=== PATIENT | female | born 1970 | race American Indian/Alaskan Native ===

== ENCOUNTER 2016-07-23 02:59 | Emergency (ER) | payer SELFPAY ==
[2016-07-23 03:25] VITALS: BP 171/94
--- NOTE | 2016-07-23 04:43 | Emergency Department Report ---
ED Lower Extremity HPI - General Chief Complaint: Extremity Injury, Lower Stated Complaint: RIGHT ANKLE PAIN Time Seen by Provider: 07/23/16 04:25 Source: patient Mode of arrival: Ambulatory Limitations: No Limitations - History of Present Illness Initial Comments: 46 y/o female presents to ER with complaints of right ankle pain. She twisted her right ankle at home few hours ago, since complaint of swelling and pain to her right ankle. Complaint: ankle injury (right) -: Gradual, hour(s) (few) Injury: Ankle: Right Type of Injury: inversion Place: home Severity: moderate Severity scale (0 -10): 2 Improves With: nothing Worsens With: movement Context: fall Associated Symptoms: swelling Treatments Prior to Arrival: cold therapy - Related Data Previous Rx's Medication Instructions Recorded Last Taken Type Acetaminophen/Codeine [Tylenol #3] 1 tab PO Q6H PRN #12 tab 07/23/16 Unknown Rx Diclofenac Sodium 75 mg PO BID #20 tablet. 07/23/16 Unknown Rx Allergies Allergy/AdvReac Type Severity Reaction Status Date / Time acetaminophen [From Percocet] Allergy Rash Verified 07/23/16 03:25 cefoxitin sodium Allergy Rash Verified 07/23/16 03:25 [From Mefoxin] oxycodone HCl [From Percocet] Allergy Rash Verified 07/23/16 03:25 ED Review of Systems ROS: Stated complaint: RIGHT ANKLE PAIN Other details as noted in HPI Comment: All other systems reviewed and negative Constitutional: denies: chills, fever Eyes: denies: eye pain, eye discharge, vision change ENT: denies: ear pain, throat pain Respiratory: denies: cough, shortness of breath, wheezing Cardiovascular: denies: chest pain, palpitations Endocrine: no symptoms reported Gastrointestinal: denies: abdominal pain, nausea, diarrhea Genitourinary: denies: urgency, dysuria, discharge Musculoskeletal: joint swelling, other (right ankle). denies: back pain, arthralgia Skin: denies: rash, lesions Neurological: denies: headache, weakness, paresthesias Psychiatric: denies: anxiety, depression Hematological/Lymphatic: denies: easy bleeding, easy bruising ED Past Medical Hx - Past Medical History Previous Medical History?: No - Surgical History Past Surgical History?: Yes Additional Surgical History: hysterectomy 2014, GB 2004/2005? - Social History Smoking Status: Current Every Day Smoker - Medications Home Medications: Home Medications Medication Instructions Recorded Confirmed Last Taken Type Acetaminophen/Codeine [Tylenol #3] 1 tab PO Q6H PRN #12 tab 07/23/16 Unknown Rx Diclofenac Sodium 75 mg PO BID #20 tablet. 07/23/16 Unknown Rx ED Physical Exam - General Limitations: No Limitations General appearance: alert, in no apparent distress - Head Head exam: Present: atraumatic, normocephalic - Eye Eye exam: Present: normal appearance - ENT ENT exam: Present: mucous membranes moist - Neck Neck exam: Present: normal inspection - Respiratory Respiratory exam: Present: normal lung sounds bilaterally. Absent: respiratory distress - Cardiovascular Cardiovascular Exam: Present: regular rate, normal rhythm. Absent: systolic murmur, diastolic murmur, rubs, gallop - GI/Abdominal GI/Abdominal exam: Present: soft, normal bowel sounds - Extremities Exam Extremities exam: Present: normal inspection - Expanded Lower Extremity Exam Right Hip exam: Present: normal inspection, full ROM Upper Leg exam: Present: normal inspection, full ROM Knee exam: Present: normal inspection, full ROM Lower Leg exam: Present: normal inspection, full ROM Ankle exam: Present: normal inspection, tenderness, swelling (medial and lateral right ankle) Foot/Toe exam: Present: normal inspection, full ROM Neuro vascular tendon exam: Present: no vascular compromise - Back Exam Back exam: Present: normal inspection - Neurological Exam Neurological exam: Present: alert, oriented X3 - Psychiatric Psychiatric exam: Present: normal affect, normal mood - Skin Skin exam: Present: warm, dry, intact, normal color. Absent: rash ED Course Vital Signs 07/23/16 03:08 Temperature 99.2 F Pulse Rate 87 Respiratory 18 Rate Blood Pressure 171/94 O2 Sat by Pulse 100 Oximetry - Orthopedic Splinting/Casting Injury #1 Side: right Lower Extremity Injury Location: ankle Lower Extremity Immobilizer: AirCast Other Orthopedic Equipment: crutches ED Lower Extremity MDM - Radiology Data Radiology results: report reviewed, image reviewed (no acute fracture) Critical care attestation.: If time is entered above; I have spent that time in minutes in the direct care of this critically ill patient, excluding procedure time. ED Disposition Clinical Impression: Moderate right ankle sprain Qualifiers: Encounter type: initial encounter Qualified Code(s): S93.401A - Sprain of unspecified ligament of right ankle, initial encounter Disposition: DISCHARGED TO HOME OR SELFCARE Is pt being admited?: No Does the pt Need Aspirin: No Condition: Good Instructions: Ankle Sprain (ED), Ankle Stirrup Splint (ED) Prescriptions: Acetaminophen/Codeine [Tylenol #3] 1 tab PO Q6H PRN #12 tab PRN Reason: Pain Diclofenac Sodium 75 mg PO BID #20 tablet.dr Referrals: SUSAN MCKEON MD [Staff Physician] - 3-5 Days Forms: Work/School Release Form(ED)
[2016-07-23] MEDS ORDERED: TORADOL IM ONE (06:00)
[2016-07-23] MEDS ORDERED: TYLENOL #3 PO ONE (06:02)
--- NOTE | 2016-07-23 08:05 | XRay Report ---
RIGHT ANKLE RADIOGRAPHS INDICATION: Pain and swelling. COMPARISON: None similar at this institution. FINDINGS: AP, lateral and oblique right ankle radiographs demonstrate intact mortise, malleoli and talar dome contour. Normal soft tissues. CONCLUSION: No acute radiographic abnormality. Thank you for the opportunity to participate in this patient's care.
== END 2016-07-23 06:23 | disposition home or self-care (01) ==
LOC: ED 02:59
DX: S93.401A Sprain of unspecified ligament of right ankle, initial encounter (principal); F17.200 Nicotine dependence, unspecified, uncomplicated; Z90.710 Acquired absence of both cervix and uterus; Z88.8 Allergy status to other drugs, medicaments and biological substances; X58.XXXA Exposure to other specified factors, initial encounter; Y93.89 Activity, other specified; Y99.8 Other external cause status; Y92.098 Other place in other non-institutional residence as the place of occurrence of the external cause
CPT/HCPCS: 29515; 73610; 96372; 99284; J1885

== ENCOUNTER 2017-01-11 18:41 | Emergency (ER) | payer OTHER ==
[2017-01-11] MEDS ORDERED: CATAPRES PO ONE (19:16)
[2017-01-11] MEDS ORDERED: CATAPRES ONE (19:21)
[2017-01-11 19:32] LABS: Basophils % (Auto) 0.9 % (0.0-1.8); Eosinophils % (Auto) 2.2 % (0.0-4.3); Hematocrit 39.4 % (30.3-42.9); Hemoglobin 12.8 gm/dl (10.1-14.3); Mean Corpuscular HGB Conc 32 % (30-34); Mean Corpuscular Hemoglobin 29 pg (28-32); Mean Corpuscular Volume 91 fl (79-97); Platelet Count 267 K/mm3 (140-440); Red Blood Count 4.35 M/mm3 (3.65-5.03); Red Cell Distribution Width 13.4 % (13.2-15.2); White Blood Count 6.9 K/mm3 (4.5-11.0)
[2017-01-11 19:53] LABS: Anion Gap 19 mmol/L; Blood Urea Nitrogen 11 mg/dL (7-17); Carbon Dioxide 23 mmol/L (22-30); Chloride 100.4 mmol/L (98-107); Glucose 95 mg/dL (65-100); Potassium 4.4 mmol/L (3.6-5.0); Sodium 138 mmol/L (137-145)
[2017-01-11 20:25] LABS: Bilirubin,Urine NEG (Negative); Blood,Urine MOD (Negative); Ketones,Urine NEG (Negative); Leukocyte Esterase,Urine NEG (Negative); Mucus,Urine FEW /HPF; Nitrite,Urine NEG (Negative); Protein,Urine <15 mg/dL mg/dL (Negative); Urobilinogen,Urine < 2.0 mg/dL (<2.0)
[2017-01-11] MEDS ORDERED: TORADOL IM ONE (22:04)
[2017-01-11] MEDS ORDERED: ZOFRAN IM ONE (22:04)
[2017-01-11] MEDS ORDERED: SUBLIMAZE IM ONE (22:04)
--- NOTE | 2017-01-11 22:24 | Emergency Department Report ---
HPI - General Chief Complaint: Neck Pain/Injury Time Seen by Provider: 01/11/17 21:53 - HPI HPI: Room 2 The patient is a 46-year-old female presenting with a chief complaint of right shoulder/neck pain. The patient states since yesterday morning after waking she 's had pain in the right trapezius/neck region. Patient denies any preceding trauma or heavy lifting. Patient denies any history of fever. Patient denies chest pain shortness of breath nausea or vomiting. Patient denies previous episodes of same. The patient states she took a shower and it did help the pain however today the pain increased. The patient states she is tried icy hot and BC powder but it did not help. The patient currently gives her pain a score of 8/10 Location: [see above] Duration: 2 days Quality: Soreness Severity:8/10 Modifying factors: Movement increases pain Context: [see above] Mode of transportation: [not driving] ED Past Medical Hx - Past Medical History Previous Medical History?: Yes Additional medical history: hypothyroidism - Surgical History Past Surgical History?: Yes Hx Cholecystectomy: Yes Additional Surgical History: hysterectomy 2014 - Social History Smoking Status: Current Every Day Smoker (1/2 pack per day) Substance Use Type: None (denies illicit drug use), Alcohol (occasional) - Medications Home Medications: Home Medications Medication Instructions Recorded Confirmed Last Taken Type Acetaminophen/Codeine [Tylenol #3] 1 tab PO Q6H PRN #12 tab 07/23/16 Unknown Rx Diclofenac Sodium 75 mg PO BID #20 tablet. 07/23/16 Unknown Rx Cyclobenzaprine [Flexeril] 10 mg PO TID PRN #20 tablet 01/11/17 Unknown Rx HYDROcodone/APAP 5-325 [[place] 1 - 2 each PO Q6HR PRN #14 tablet 01/11/17 Unknown Rx 5/325] Ibuprofen [Motrin 800 MG tab] 800 mg PO Q8HR PRN #20 tablet 01/11/17 Unknown Rx Levothyroxine [Synthroid] 125 mcg PO QAM #60 tablet 01/11/17 Unknown Rx ED Review of Systems ROS: Stated complaint: RT SIDE PAIN Other details as noted in HPI Comment: All other systems reviewed and negative Constitutional: denies: chills, fever Eyes: denies: eye pain, eye discharge, vision change ENT: denies: ear pain, throat pain Respiratory: denies: cough, shortness of breath, wheezing Cardiovascular: denies: chest pain, palpitations Endocrine: no symptoms reported Gastrointestinal: denies: abdominal pain, nausea, diarrhea Genitourinary: denies: urgency, dysuria, discharge Musculoskeletal: myalgia Skin: denies: rash, lesions Neurological: denies: headache, weakness, paresthesias Psychiatric: denies: anxiety, depression Hematological/Lymphatic: denies: easy bleeding, easy bruising Physical Exam - Physical Exam Vital Signs: Vital Signs 01/11/17 01/11/17 19:01 19:20 Temperature 98.4 F Pulse Rate 89 89 Respiratory 18 Rate Blood Pressure 185/114 185/114 O2 Sat by Pulse 100 Oximetry Physical Exam: GENERAL: The patient is well-developed well-nourished female sitting in chair not appearing to be in acute distress. [] HEENT: Normocephalic. Atraumatic. Extraocular motions are intact. Patient has moist mucous membranes. NECK: Supple. No axial tenderness to palpation CHEST/LUNGS: Clear to auscultation. There is no respiratory distress noted. HEART/CARDIOVASCULAR: Regular. There is no tachycardia. There is no gallop rub or murmur. ABDOMEN: There is no abdominal distention. SKIN: There is no rash. There is no edema. There is no diaphoresis. NEURO: The patient is awake, alert, and oriented. The patient is cooperative. The patient has no focal neurologic deficits. The patient has normal speech and gait. MUSCULOSKELETAL: There is no tenderness or deformity. There is reproduction of the pain on the patient's right arm is resistant while pushing anteriorly. There is reproduction of the pain when the patient touches her back with her right thumb going over her right shoulder. There is no evidence of acute injury. ED Course Vital Signs 01/11/17 01/11/17 19:01 19:20 Temperature 98.4 F Pulse Rate 89 89 Respiratory 18 Rate Blood Pressure 185/114 185/114 O2 Sat by Pulse 100 Oximetry ED Medical Decision Making - Lab Data Result diagrams: 01/11/17 19:20 01/11/17 19:20 Laboratory Tests 01/11/17 01/11/17 01/11/17 19:18 19:20 19:20 WBC 6.9 RBC 4.35 Hgb 12.8 Hct 39.4 MCV 91 MCH 29 MCHC 32 RDW 13.4 Plt Count 267 Lymph % (Auto) 38.9 H Todd % (Auto) 8.6 H Eos % (Auto) 2.2 Baso % (Auto) 0.9 Lymph # 2.7 Todd # 0.6 Eos # 0.1 Baso # 0.1 Seg Neutrophils % 49.4 Seg Neutrophils # 3.4 Sodium 138 Potassium 4.4 Chloride 100.4 Carbon Dioxide 23 Anion Gap 19 BUN 11 Creatinine 1.0 Estimated GFR > 60 BUN/Creatinine Ratio 11.00 Glucose 95 Calcium 9.0 TSH Free T4 Thyroxine (T4) Urine Color Yellow Urine Turbidity Clear Urine pH 6.0 Ur Specific [place] 1.017 Urine Protein <15 mg/dl Urine Glucose (UA) Neg Urine Ketones Neg Urine Blood Mod Urine Nitrite Neg Urine Bilirubin Neg Urine Urobilinogen < 2.0 Ur Leukocyte Esterase Neg Urine WBC (Auto) 1.0 Urine RBC (Auto) 9.0 U Epithel Cells (Auto) 3.0 Urine Mucus Few 01/11/17 01/11/17 19:20 19:20 WBC RBC Hgb Hct MCV MCH MCHC RDW Plt Count Lymph % (Auto) Todd % (Auto) Eos % (Auto) Baso % (Auto) Lymph # Todd # Eos # Baso # Seg Neutrophils % Seg Neutrophils # Sodium Potassium Chloride Carbon Dioxide Anion Gap BUN Creatinine Estimated GFR BUN/Creatinine Ratio Glucose Calcium TSH 10.330 H 10.350 H Free T4 0.62 L Thyroxine (T4) 4.3 Urine Color Urine Turbidity Urine pH Ur Specific [place] Urine Protein Urine Glucose (UA) Urine Ketones Urine Blood Urine Nitrite Urine Bilirubin Urine Urobilinogen Ur Leukocyte Esterase Urine WBC (Auto) Urine RBC (Auto) U Epithel Cells (Auto) Urine Mucus - Differential Diagnosis rotator cuff injury, bursitis, muscle spasm Critical care attestation.: If time is entered above; I have spent that time in minutes in the direct care of this critically ill patient, excluding procedure time. ED Disposition Clinical Impression: Rotator cuff injury, Right shoulder pain, Hypothyroidism Disposition: TO HOME OR SELFCARE Is pt being admited?: No Does the pt Need Aspirin: No Condition: Stable Instructions: Rotator Cuff Injury (ED), Hypothyroidism (ED) Additional Instructions: Return to the emergency department immediately should you develop worsening symptoms, fever, inability to tolerate food or liquid or any other concerns. Prescriptions: Cyclobenzaprine [Flexeril] 10 mg PO TID PRN #20 tablet PRN Reason: Muscle Spasm HYDROcodone/APAP 5-325 [[place] 5/325] 1 - 2 each PO Q6HR PRN #14 tablet PRN Reason: Pain Ibuprofen [Motrin 800 MG tab] 800 mg PO Q8HR PRN #20 tablet PRN Reason: Pain Levothyroxine [Synthroid] 125 mcg PO QAM #60 tablet Referrals: [facility] [Outside] - 3-5 Days SALVADOR HERNANDEZ MD [Staff Physician] - 3-5 Days (Dr. Hernandez is an orthopedic surgeon. Please follow up with him for further evaluation) Time of Disposition: 23:47
[2017-01-12 00:30] VITALS: BP 148/91
== END 2017-01-12 00:36 | disposition home or self-care (01) ==
LOC: ED 18:41
DX: S49.91XA Unspecified injury of right shoulder and upper arm, initial encounter (principal); F17.200 Nicotine dependence, unspecified, uncomplicated; E03.9 Hypothyroidism, unspecified; X50.0XXA Overexertion from strenuous movement or load, initial encounter; Y93.9 Activity, unspecified; Y92.9 Unspecified place or not applicable; Y99.9 Unspecified external cause status
CPT/HCPCS: 36415; 80048; 81001; 84436; 84439; 84443; 84481; 85025; 96372; 99283; J1885; J2405; J3010

== ENCOUNTER 2017-04-25 16:13 | Emergency (ER) | payer MEDICAID, OTHER ==
[2017-04-25 18:33] LABS: Bacteria,Urine 1+ /HPF (Negative); Bilirubin,Urine NEG (Negative); Blood,Urine MOD (Negative); Ketones,Urine NEG (Negative); Leukocyte Esterase,Urine NEG (Negative); Mucus,Urine FEW /HPF; Nitrite,Urine NEG (Negative); Protein,Urine <15 mg/dL mg/dL (Negative); Urobilinogen,Urine < 2.0 mg/dL (<2.0)
[2017-04-25 21:45] VITALS: BP 169/85
--- NOTE | 2017-04-25 22:23 | XRay Report ---
FINAL REPORT PROCEDURE: XR CHEST ROUTINE 2V TECHNIQUE: PA and lateral chest radiographs were obtained. CPT 12076 HISTORY: cough COMPARISON: No prior studies are available for comparison. FINDINGS: Heart: Normal. Mediastinum/Vessels: Normal. Lungs/Pleural space: Lungs are clear and expanded. There are no infiltrates, effusions or pneumothoraces.. Bony thorax: No acute osseous abnormality. Other: IMPRESSION: Normal examination.
--- NOTE | 2017-04-25 22:40 | Emergency Department Report ---
- General Chief Complaint: Upper Respiratory Infection Stated Complaint: NOSE/EAR FEEL CLOGGED Time Seen by Provider: 04/25/17 21:25 Source: patient Mode of arrival: Ambulatory Limitations: No Limitations - History of Present Illness Initial Comments: This is a 47-year-old female nontoxic, well nourished in appearance, no acute signs of distress presents to the ED with c/o of nasal congestion, rhinorrhea, productive cough 1 week. Patient stated daughter has similar symptoms. Patient denies any hemoptysis, fever, chills, headache, nausea, vomiting, stiff neck, chest pain or shortness of breath. Patient denies admission travels, long car rides or recent hospital stays. Denies any past medical history besides hypothyroidism. Allergies to Percocet and Mefoxin. Patient also states she needs a refill for levothyroxine 125mcg. MD Complaint: fever, cough, rhinorrhea, nasal congestion -: Gradual, week(s) (1) Severity: mild Consistency: constant Improves With: nothing Worsens With: nothing Associated Symptoms: rhinorrhea, nasal congestion, cough. denies: fever, chills , myalgias, diaphoresis, headache, sore throat, stiff neck, chest pain, shortness of breath, abdominal pain, nausea, vomiting, diarrhea, dysuria, rash, confusion, right sweats, weight loss, epistaxis, hoarseness, ear pain Treatments Prior to Arrival: none - Related Data Previous Rx's Medication Instructions Recorded Last Taken Type Acetaminophen/Codeine [Tylenol #3] 1 tab PO Q6H PRN #12 tab 07/23/16 Unknown Rx Diclofenac Sodium 75 mg PO BID #20 tablet. 07/23/16 Unknown Rx Cyclobenzaprine [Flexeril] 10 mg PO TID PRN #20 tablet 01/11/17 Unknown Rx HYDROcodone/APAP 5-325 [[place] 1 - 2 each PO Q6HR PRN #14 tablet 01/11/17 Unknown Rx 5/325] Ibuprofen [Motrin 800 MG tab] 800 mg PO Q8HR PRN #20 tablet 01/11/17 Unknown Rx Levothyroxine [Synthroid] 125 mcg PO QAM #60 tablet 01/11/17 Unknown Rx Azithromycin [Zithromax Z-JAN] 250 mg PO DAILY #6 tablet 04/25/17 Unknown Rx Benzonatate [Tessalon Perle] 100 mg PO Q8H PRN #20 capsule 04/25/17 Unknown Rx Levothyroxine [Synthroid] 125 mcg PO QAM #30 tablet 04/25/17 Unknown Rx Allergies Allergy/AdvReac Type Severity Reaction Status Date / Time cefoxitin sodium Allergy Rash Verified 07/23/16 03:25 [From Mefoxin] oxycodone HCl [From Percocet] Allergy Rash Verified 07/23/16 03:25 ED Review of Systems ROS: Stated complaint: NOSE/EAR FEEL CLOGGED Other details as noted in HPI Constitutional: denies: chills, fever Eyes: denies: eye pain, eye discharge, vision change ENT: denies: ear pain, throat pain Respiratory: cough. denies: shortness of breath, wheezing Cardiovascular: denies: chest pain, palpitations Endocrine: no symptoms reported Gastrointestinal: denies: abdominal pain, nausea, diarrhea Genitourinary: denies: urgency, dysuria, discharge Musculoskeletal: denies: back pain, joint swelling, arthralgia Skin: denies: rash, lesions Neurological: denies: headache, weakness, paresthesias Psychiatric: denies: anxiety, depression Hematological/Lymphatic: denies: easy bleeding, easy bruising ED Past Medical Hx - Past Medical History Previous Medical History?: Yes Additional medical history: hypothyroidism - Surgical History Past Surgical History?: Yes Hx Cholecystectomy: Yes Additional Surgical History: hysterectomy 2014 - Social History Smoking Status: Current Every Day Smoker Substance Use Type: Alcohol - Medications Home Medications: Home Medications Medication Instructions Recorded Confirmed Last Taken Type Acetaminophen/Codeine [Tylenol #3] 1 tab PO Q6H PRN #12 tab 07/23/16 Unknown Rx Diclofenac Sodium 75 mg PO BID #20 tablet. 07/23/16 Unknown Rx Cyclobenzaprine [Flexeril] 10 mg PO TID PRN #20 tablet 01/11/17 Unknown Rx HYDROcodone/APAP 5-325 [[place] 1 - 2 each PO Q6HR PRN #14 tablet 01/11/17 Unknown Rx 5/325] Ibuprofen [Motrin 800 MG tab] 800 mg PO Q8HR PRN #20 tablet 01/11/17 Unknown Rx Levothyroxine [Synthroid] 125 mcg PO QAM #60 tablet 01/11/17 Unknown Rx Azithromycin [Zithromax Z-JAN] 250 mg PO DAILY #6 tablet 04/25/17 Unknown Rx Benzonatate [Tessalon Perle] 100 mg PO Q8H PRN #20 capsule 04/25/17 Unknown Rx Levothyroxine [Synthroid] 125 mcg PO QAM #30 tablet 04/25/17 Unknown Rx ED Physical Exam - General Limitations: No Limitations General appearance: alert, in no apparent distress - Head Head exam: Present: atraumatic, normocephalic - Eye Eye exam: Present: normal appearance, PERRL, EOMI Pupils: Present: normal accommodation - ENT ENT exam: Present: normal exam, normal orophraynx, mucous membranes moist, TM's normal bilaterally, normal external ear exam - Neck Neck exam: Present: normal inspection, full ROM. Absent: tenderness, meningismus, lymphadenopathy, thyromegaly - Respiratory Respiratory exam: Present: normal lung sounds bilaterally. Absent: respiratory distress, wheezes, rales, rhonchi, stridor, chest wall tenderness, accessory muscle use, decreased breath sounds, prolonged expiratory - Cardiovascular Cardiovascular Exam: Present: regular rate, normal rhythm, normal heart sounds. Absent: irregular rhythm, systolic murmur, diastolic murmur, rubs, gallop - GI/Abdominal GI/Abdominal exam: Present: soft, normal bowel sounds. Absent: distended, tenderness, guarding, rebound, rigid, diminished bowel sounds - Rectal Rectal exam: Present: deferred - Extremities Exam Extremities exam: Present: normal inspection, full ROM, normal capillary refill. Absent: tenderness, pedal edema, joint swelling, calf tenderness - Back Exam Back exam: Present: normal inspection, full ROM. Absent: tenderness, CVA tenderness (R), CVA tenderness (L), muscle spasm, paraspinal tenderness, vertebral tenderness, rash noted - Neurological Exam Neurological exam: Present: alert, oriented X3, CN II-XII intact, normal gait, reflexes normal - Psychiatric Psychiatric exam: Present: normal affect, normal mood - Skin Skin exam: Present: warm, dry, intact, normal color. Absent: rash ED Course Vital Signs 04/25/17 04/25/17 16:38 21:44 Temperature 98.7 F 98.2 F Pulse Rate 92 H 88 Respiratory 16 16 Rate Blood Pressure 156/89 Blood Pressure 169/85 [Left] O2 Sat by Pulse 99 99 Oximetry - Reevaluation(s) Reevaluation #1: 04/25/17 22:38 Patient is speaking in full sentences with no signs of distress noted. ED Medical Decision Making - Radiology Data Radiology results: report reviewed interpreted by me: Radiologist Normal exam Critical care attestation.: If time is entered above; I have spent that time in minutes in the direct care of this critically ill patient, excluding procedure time. ED Disposition Clinical Impression: Upper respiratory infection Qualifiers: URI type: unspecified URI Qualified Code(s): J06.9 - Acute upper respiratory infection, unspecified Disposition: DC- TO HOME OR SELFCARE Is pt being admited?: No Does the pt Need Aspirin: No Condition: Stable Instructions: Azithromycin (By mouth), Upper Respiratory Infection (ED), Benzonatate (By mouth) Additional Instructions: Follow-up with a primary care doctor in 3-5 days or if symptoms worsen and continue return to emergency room as soon as possible. Prescriptions: Azithromycin [Zithromax Z-JAN] 250 mg PO DAILY #6 tablet Benzonatate [Tessalon Perle] 100 mg PO Q8H PRN #20 capsule PRN Reason: Cough Levothyroxine [Synthroid] 125 mcg PO QAM #30 tablet Referrals: SARAH BOBBY MD [Primary Care Provider] - 3-5 Days LINAD HUGHES MD [Staff Physician] - 3-5 Days [facility] [Outside] - 3-[address] [facility] [Outside] - 3-5 Days Forms: Work/School Release Form(ED)
== END 2017-04-25 22:53 | disposition home or self-care (01) ==
LOC: ED 16:13
DX: J06.9 Acute upper respiratory infection, unspecified (principal); F17.210 Nicotine dependence, cigarettes, uncomplicated; E03.9 Hypothyroidism, unspecified; Z88.8 Allergy status to other drugs, medicaments and biological substances
CPT/HCPCS: 71020; 81001; 99283

== ENCOUNTER 2017-11-22 11:31 | Emergency (ER) | payer MEDICAID ==
[2017-11-22 12:12] LABS: Bacteria,Urine 1+ /HPF (Negative); Bilirubin,Urine SM (Negative); Blood,Urine MOD (Negative); Color,Urine Amber (Yellow); Mucus,Urine 3+ /HPF
[2017-11-22 12:16] LABS: Ictotest,Urine Negative (Negative)
--- NOTE | 2017-11-22 12:17 | Emergency Department Report ---
Vomiting/Diarrhea - HPI Chief Complaint: Abdominal Pain Stated Complaint: ABD PAIN Time Seen by Provider: 11/22/17 11:52 Duration: 3 Days Severity: mild Nausea/Vomiting Severity: Mild Diarrhea Severity: Moderate Pain Location: Suprapubic Pain Severity: Moderate Symptoms: Yes Watery Diarrhea, Yes Able to Tolerate Fluids, No Bloody diarrhea, No Fever, No Recent Unusual Foods, No Recent Untreated Water, No Recent use of Antibiotics, No Family w/ Similar Symptoms, No Contacts w/ Similar Symptoms, No Rash, No Hematuria, No Recent URI Symptoms Other History: This is a 47-year-old -[place] female who presents with suprapubic and left flank pain for 3 days. Patient reports having symptoms 1 week ago but symptoms increase shortly after her grandmother passed 3 days ago. Patient reports pain to left flank and has sharp pains that are intermittent. She have urgency without dysuria and frequency. Patient reports like something is pulling and stomach. He admits to nausea vomiting and diarrhea for the past 2 days. She is drinking Gatorade in increased amounts of water with no improvement of symptoms. Denies recent travel, fever, chest pain, shortness of breath, or other contacts sent home with similar symptoms. ED Review of Systems ROS: Stated complaint: ABD PAIN Other details as noted in HPI Constitutional: denies: chills, fever Respiratory: denies: cough, shortness of breath, wheezing Cardiovascular: denies: chest pain, palpitations Gastrointestinal: abdominal pain (suprapubic abdominal pain), nausea, vomiting. denies: diarrhea, constipation, hematemesis, melena, hematochezia Genitourinary: urgency. denies: dysuria, frequency, hematuria, discharge, abnormal menses, dyspareunia Musculoskeletal: back pain (left flank pain). denies: joint swelling, arthralgia Skin: denies: rash, lesions Neurological: denies: headache, weakness, numbness, paresthesias Psychiatric: denies: anxiety, depression ED Past Medical Hx - Past Medical History Previous Medical History?: Yes Additional medical history: hypothyroidism, Anemia - Surgical History Past Surgical History?: Yes Hx Cholecystectomy: Yes Additional Surgical History: hysterectomy 2014 - Social History Smoking Status: Current Every Day Smoker Substance Use Type: Alcohol - Medications Home Medications: Home Medications Medication Instructions Recorded Confirmed Last Taken Type Acetaminophen/Codeine [Tylenol #3] 1 tab PO Q6H PRN #12 tab 07/23/16 Unknown Rx Diclofenac Sodium 75 mg PO BID #20 tablet. 07/23/16 Unknown Rx Cyclobenzaprine [Flexeril] 10 mg PO TID PRN #20 tablet 01/11/17 Unknown Rx HYDROcodone/APAP 5-325 [Peoa 1 - 2 each PO Q6HR PRN #14 tablet 01/11/17 Unknown Rx 5/325] Ibuprofen [Motrin 800 MG tab] 800 mg PO Q8HR PRN #20 tablet 01/11/17 Unknown Rx Levothyroxine [Synthroid] 125 mcg PO QAM #60 tablet 01/11/17 Unknown Rx Azithromycin [Zithromax Z-JAN] 250 mg PO DAILY #6 tablet 04/25/17 Unknown Rx Benzonatate [Tessalon Perle] 100 mg PO Q8H PRN #20 capsule 04/25/17 Unknown Rx Levothyroxine [Synthroid] 125 mcg PO QAM #30 tablet 04/25/17 Unknown Rx Ondansetron [Zofran Odt] 4 mg PO TID PRN #12 tab.rapdis 11/22/17 Unknown Rx Sulfamethoxazole/Trimethoprim 1 each PO BID 3 Days #6 tablet 11/22/17 Unknown Rx [Bactrim DS TAB] Vomiting Diarrhea Exam - Exam General: Vital signs noted. No distress. Alert and acting appropriately. HEENT: Yes Moist Mucous Membranes, No Pharyngeal Erythema, No Pharyngeal Exudates, No Rhinorrhea, No Conjuctival Injection, No Frontal Tenderness, No Maxillary Tenderness Neck: No Adenopathy, No Rigidity Lungs: Yes Clear Lung Sounds, Yes Good Air Exchange, No Wheezes, No Stridor, No Cough, No Nasal Flaring, No Retractions, No Use of Accessory Muscles Heart exam: Regular: Yes, Murmur: No, Tachycardia: No Abdomen: Tenderness: Yes (left upper quadrant tenderness), Peritoneal Signs: No , Distention: No, Hyperactive Bowel sounds: No Skin exam: Rash: No, Edema: No, Normal turgor: Yes Neurologic: Alert and oriented, no deficits. Musculoskeletal: CVA tenderness on left ED Course Vital Signs 11/22/17 11:38 Temperature 98.2 F Pulse Rate 104 H Respiratory 18 Rate Blood Pressure 171/80 O2 Sat by Pulse 99 Oximetry ED Medical Decision Making - Lab Data Result diagrams: 11/22/17 12:30 11/22/17 12:33 - Radiology Data Radiology results: report reviewed, image reviewed CT abdomen and pelvis without contrast: Left upper quadrant tenderness. Transverse images are obtained from lower chest to the ischium with coronal and sagittal 2-D reformatted images. Imaging of the lung bases is unremarkable. There appears to be a small hiatus hernia. The gallbladder has been removed. The abdominal and retroperitoneal organs are unremarkable. The abdominal aorta is normal in size and contour. The unopacified bowel and mesentery appear normal. No evidence of diverticulosis or inflammatory changes are identified. The appendix is present is not identified. Sections of the pelvis show no evidence of free fluid or mass. The bony structures appear normal. Impressions: No pathology identified. - Medical Decision Making This is a 37y.o. female that presents with nausea/vomiting and diarrhea for 2 days. Patient is stable and was examined by me. Vitals normal. Obtained CMP, CBC , UA, urine hCG, lipase, and CT of the abdomen. CT dictated by the radiologist and no acute findings. Potassium low, patient given Klor-Con 40 mEq by mouth 1. Start Bactrim DS one tab by mouth twice a day 3 days for acute cystitis. All of the labs are unremarkable. Discussed plan with patient and agreed to plan. No further questions noted by the patient. Discharged home in stable condition. Follow up with PCP in 2-3 days. Critical care attestation.: If time is entered above; I have spent that time in minutes in the direct care of this critically ill patient, excluding procedure time. ED Disposition Clinical Impression: Gastroenteritis, Hypokalemia, Nausea and vomiting in adult Acute cystitis Qualifiers: Hematuria presence: with hematuria Qualified Code(s): N30.01 - Acute cystitis with hematuria Disposition: DC-01 TO HOME OR SELFCARE Is pt being admited?: No Does the pt Need Aspirin: No Condition: Stable Instructions: Urinary Tract Infection in Women (ED), Gastroenteritis (ED), Acute Nausea and Vomiting (ED), Abdominal Pain (ED) Additional Instructions: Frequent hand washing is important to reduce spread. Prompt disinfection of contaminated surfaces with household chlorine bleach- based freight hustler and washing of soiled clothing and bedding should be advised. If food or water is thought to be contaminated, it should be avoided. Increase fluid intake. Drinks high in sugars such as carbonated soft drinks, fruit juice, and highly sugared liquids should be avoided. Follow-up with primary care provider in 2-3 days. Prescriptions: Ondansetron [Zofran Odt] 4 mg PO TID PRN #12 tab.rapdis PRN Reason: Nausea And Vomiting Sulfamethoxazole/Trimethoprim [Bactrim DS TAB] 1 each PO BID 3 Days #6 tablet Referrals: [facility] [Outside] - 3-5 Days [facility] [Outside] - 3-5 Days [facility] [Provider Group] - 3-5 Days [facility] [Provider Group] - 3-5 Days Forms: Work/School Release Form(ED) Time of Disposition: 13:57 Print Language: BURKINAN
[2017-11-22 12:23] LABS: HCG Qualitative,Urine Negative (Negative)
[2017-11-22 12:53] LABS: Basophils % (Auto) 0.4 % (0.0-1.8); Eosinophils % (Auto) 0.4 % (0.0-4.3); Hematocrit 40.3 % (30.3-42.9); Hemoglobin 13.4 gm/dl (10.1-14.3); Lymphocytes # (Auto) 0.8 K/mm3 (1.2-5.4); Lymphocytes % (Auto) 18.9 % (13.4-35.0); Mean Corpuscular HGB Conc 33 % (30-34); Mean Corpuscular Hemoglobin 30 pg (28-32); Mean Corpuscular Volume 91 fl (79-97); Monocytes # (Auto) 0.5 K/mm3 (0.0-0.8); Platelet Count 218 K/mm3 (140-440); Red Blood Count 4.45 M/mm3 (3.65-5.03); Red Cell Distribution Width 13.6 % (13.2-15.2)
[2017-11-22 13:07] LABS: Alanine Aminotransferase 13 units/L (7-56); Albumin 4.2 g/dL (3.9-5); BUN/Creatinine Ratio 6; Blood Urea Nitrogen 6 mg/dL (7-17); Hemolysis Index 5
--- NOTE | 2017-11-22 13:47 | Cat Scan Report ---
CT abdomen and pelvis without contrast: Left upper quadrant tenderness. Transverse images are obtained from lower chest to the ischium with coronal and sagittal 2-D reformatted images. Imaging of the lung bases is unremarkable. There appears to be a small hiatus hernia. The gallbladder has been removed. The abdominal and retroperitoneal organs are unremarkable. The abdominal aorta is normal in size and contour. The unopacified bowel and mesentery appear normal. No evidence of diverticulosis or inflammatory changes are identified. The appendix is present is not identified. Sections of the pelvis show no evidence of free fluid or mass. The bony structures appear normal. Impressions: No pathology identified.
[2017-11-22] MEDS ORDERED: K-DUR PO ONE (13:58)
[2017-11-22 14:11] VITALS: BP 171/106
== END 2017-11-22 14:22 | disposition home or self-care (01) ==
LOC: ED 11:31
DX: K52.9 Noninfective gastroenteritis and colitis, unspecified (principal); E87.6 Hypokalemia; R11.2 Nausea with vomiting, unspecified; N30.01 Acute cystitis with hematuria; D64.9 Anemia, unspecified; E03.9 Hypothyroidism, unspecified; F17.200 Nicotine dependence, unspecified, uncomplicated; Z90.49 Acquired absence of other specified parts of digestive tract; Z90.710 Acquired absence of both cervix and uterus
CPT/HCPCS: 36415; 74176; 80053; 81001; 81025; 83690; 85025

== ENCOUNTER 2018-06-16 20:48 | Emergency (ER) | payer MEDICAID, OTHER ==
[2018-06-16] MEDS ORDERED: NACL 0.9% 1000 ML 1,000 ML IV ONE ×2 (21:03→21:58)
[2018-06-16 21:30] LABS: Bacteria,Urine 1+ /HPF (Negative); Bilirubin,Urine NEG (Negative); Blood,Urine MOD (Negative); Color,Urine Yellow (Yellow); Mucus,Urine 2+ /HPF; Protein,Urine <15 mg/dL mg/dL (Negative)
[2018-06-16 21:46] LABS: Hematocrit 35.3 % (30.3-42.9); Hemoglobin 11.6 gm/dl (10.1-14.3); Mean Corpuscular HGB Conc 33 % (30-34); Mean Corpuscular Volume 91 fl (79-97); Platelet Count 210 K/mm3 (140-440); Red Cell Distribution Width 13.1 % (13.2-15.2)
[2018-06-16] MEDS ORDERED: TORADOL IV ONE (21:58)
[2018-06-16] MEDS ORDERED: ZOFRAN IV ONE (21:58)
[2018-06-16 22:06] LABS: Alanine Aminotransferase 7 units/L (7-56); Albumin 4.3 g/dL (3.9-5); BUN/Creatinine Ratio 7; Blood Urea Nitrogen 8 mg/dL (7-17); Calcium 9.2 mg/dL (8.4-10.2); Hemolysis Index 10
--- NOTE | 2018-06-16 22:22 | Emergency Department Report ---
ED Abdominal Pain HPI - General Chief Complaint: Abdominal Pain Stated Complaint: LEFT SIDE ABDOMINAL PAIN Time Seen by Provider: 06/16/18 21:57 Source: patient Mode of arrival: Ambulatory Limitations: No Limitations - History of Present Illness Initial Comments: 48-year-old emergency female history total abdominal hysterectomy and renal stones presents for left lower quadrant abdominal pain radiating the suprapubic and left flank 6/10 aching sharp noticed strong urine and dysuria and some frequency there is no vaginal discharge no pelvic pain patient is for std there's nausea no vomiting no fever chills has not noticed hematuria MD Complaint: abdominal pain Onset/Timin -: days(s) Location: LLQ Radiation: suprapubic, L flank Migration to: LLQ Severity: moderate Severity scale (0 -10): 8 Quality: aching, sharp Consistency: intermittent Improves With: nothing Worsens With: movement Associated Symptoms: nausea. denies: vomiting, diarrhea, fever, chills, constipation, dysuria, hematemesis, hematochezia, melena, hematuria, anorexia - Related Data LMP (females 10-50): other (s/p hysterecotmy) Previous Rx's Medication Instructions Recorded Last Taken Type Acetaminophen/Codeine [Tylenol #3] 1 tab PO Q6H PRN #12 tab 07/23/16 Unknown Rx Diclofenac Sodium 75 mg PO BID #20 tablet. 07/23/16 Unknown Rx Cyclobenzaprine [Flexeril] 10 mg PO TID PRN #20 tablet 01/11/17 Unknown Rx HYDROcodone/APAP 5-325 [Carnation 1 - 2 each PO Q6HR PRN #14 tablet 01/11/17 Unknown Rx 5/325] Ibuprofen [Motrin 800 MG tab] 800 mg PO Q8HR PRN #20 tablet 01/11/17 Unknown Rx Levothyroxine [Synthroid] 125 mcg PO QAM #60 tablet 01/11/17 Unknown Rx Azithromycin [Zithromax Z-JAN] 250 mg PO DAILY #6 tablet 04/25/17 Unknown Rx Benzonatate [Tessalon Perle] 100 mg PO Q8H PRN #20 capsule 04/25/17 Unknown Rx Levothyroxine [Synthroid] 125 mcg PO QAM #30 tablet 04/25/17 Unknown Rx Ondansetron [Zofran Odt] 4 mg PO TID PRN #12 tab.rapdis 11/22/17 Unknown Rx Sulfamethoxazole/Trimethoprim 1 each PO BID 3 Days #6 tablet 11/22/17 Unknown Rx [Bactrim DS TAB] ALBUTEROL Inhaler(NF) [VENTOLIN 1 puff IH Q4-6H PRN #1 inha 03/29/18 Unknown Rx Inhaler(NF)] Azithromycin [Zithromax Z-JAN] 250 mg PO DAILY #6 tablet 03/29/18 Unknown Rx Benzonatate [Tessalon Perle] 100 mg PO Q8H PRN #20 capsule 03/29/18 Unknown Rx Ibuprofen [Motrin] 600 mg PO Q8H PRN #20 tablet 03/29/18 Unknown Rx Nitrofurantoin Rowan/M-Cryst 100 mg PO Q12HR #14 capsule 03/29/18 Unknown Rx [Macrobid CAP] Prednisone [predniSONE 10 mg 10 mg PO .TAPER #1 tab.ds.pk 03/29/18 Unknown Rx (6-Day Pack, 21 Tabs)] Famotidine [Pepcid] 20 mg PO BID #60 tablet 06/16/18 Unknown Rx Nitrofurantoin Monohyd/M-Cryst 100 mg PO BID #14 capsule 06/16/18 Unknown Rx [Macrobid 100 mg Capsule] traMADol [Ultram] 50 mg PO Q6HR PRN #12 tablet 06/16/18 Unknown Rx Allergies Allergy/AdvReac Type Severity Reaction Status Date / Time cefoxitin sodium Allergy Rash Verified 03/29/18 07:55 [From Mefoxin] oxycodone HCl [From Percocet] Allergy Rash Verified 03/29/18 07:55 ED Review of Systems ROS: Stated complaint: LEFT SIDE ABDOMINAL PAIN Other details as noted in HPI Constitutional: denies: chills, fever Eyes: denies: eye pain, eye discharge, vision change ENT: denies: ear pain, throat pain Respiratory: denies: cough, shortness of breath, wheezing Cardiovascular: denies: chest pain, palpitations Endocrine: no symptoms reported Gastrointestinal: abdominal pain, nausea. denies: vomiting, diarrhea, constipation, hematemesis, melena, hematochezia Genitourinary: urgency, dysuria, frequency. denies: hematuria, discharge, abnormal menses, dyspareunia Musculoskeletal: denies: back pain, joint swelling, arthralgia Skin: denies: rash, lesions Neurological: denies: headache, weakness, paresthesias Psychiatric: denies: anxiety, depression Hematological/Lymphatic: denies: easy bleeding, easy bruising ED Past Medical Hx - Past Medical History Previous Medical History?: Yes Hx Hypertension: No Hx CVA: No Hx Heart Attack/AMI: No Hx Congestive Heart Failure: No Hx Diabetes: No Hx Deep Vein Thrombosis: No Hx Pulmonary Embolism: No Hx GERD: No Hx Liver Disease: No Hx Renal Disease: No Hx of Cancer: No Hx Sickle Cell Disease: No Hx Arthritis: No Hx Headaches / Migraines: No Hx Seizures: No Hx Kidney Stones: No Hx Psychiatric Treatment: No Hx Asthma: No Hx COPD: No Hx Tuberculosis: No Hx Dementia: No Hx HIV: No Additional medical history: hypothyroidism, Anemia - Surgical History Past Surgical History?: Yes Hx Cholecystectomy: Yes Additional Surgical History: hysterectomy 2014 - Social History Smoking Status: Current Every Day Smoker Substance Use Type: None - Medications Home Medications: Home Medications Medication Instructions Recorded Confirmed Last Taken Type Acetaminophen/Codeine [Tylenol #3] 1 tab PO Q6H PRN #12 tab 07/23/16 Unknown Rx Diclofenac Sodium 75 mg PO BID #20 tablet. 07/23/16 Unknown Rx Cyclobenzaprine [Flexeril] 10 mg PO TID PRN #20 tablet 01/11/17 Unknown Rx HYDROcodone/APAP 5-325 [Carnation 1 - 2 each PO Q6HR PRN #14 tablet 01/11/17 Unknown Rx 5/325] Ibuprofen [Motrin 800 MG tab] 800 mg PO Q8HR PRN #20 tablet 01/11/17 Unknown Rx Levothyroxine [Synthroid] 125 mcg PO QAM #60 tablet 01/11/17 Unknown Rx Azithromycin [Zithromax Z-JAN] 250 mg PO DAILY #6 tablet 04/25/17 Unknown Rx Benzonatate [Tessalon Perle] 100 mg PO Q8H PRN #20 capsule 04/25/17 Unknown Rx Levothyroxine [Synthroid] 125 mcg PO QAM #30 tablet 04/25/17 Unknown Rx Ondansetron [Zofran Odt] 4 mg PO TID PRN #12 tab.rapdis 11/22/17 Unknown Rx Sulfamethoxazole/Trimethoprim 1 each PO BID 3 Days #6 tablet 11/22/17 Unknown Rx [Bactrim DS TAB] ALBUTEROL Inhaler(NF) [VENTOLIN 1 puff IH Q4-6H PRN #1 inha 03/29/18 Unknown Rx Inhaler(NF)] Azithromycin [Zithromax Z-JAN] 250 mg PO DAILY #6 tablet 03/29/18 Unknown Rx Benzonatate [Tessalon Perle] 100 mg PO Q8H PRN #20 capsule 03/29/18 Unknown Rx Ibuprofen [Motrin] 600 mg PO Q8H PRN #20 tablet 03/29/18 Unknown Rx Nitrofurantoin Rowan/M-Cryst 100 mg PO Q12HR #14 capsule 03/29/18 Unknown Rx [Macrobid CAP] Prednisone [predniSONE 10 mg 10 mg PO .TAPER #1 tab.ds.pk 03/29/18 Unknown Rx (6-Day Pack, 21 Tabs)] Famotidine [Pepcid] 20 mg PO BID #60 tablet 06/16/18 Unknown Rx Nitrofurantoin Monohyd/M-Cryst 100 mg PO BID #14 capsule 06/16/18 Unknown Rx [Macrobid 100 mg Capsule] traMADol [Ultram] 50 mg PO Q6HR PRN #12 tablet 06/16/18 Unknown Rx ED Physical Exam - General Limitations: No Limitations General appearance: alert, in no apparent distress - Head Head exam: Present: atraumatic - Eye Eye exam: Present: normal appearance - ENT ENT exam: Present: mucous membranes moist - Neck Neck exam: Present: normal inspection - Respiratory Respiratory exam: Present: normal lung sounds bilaterally. Absent: respiratory distress, wheezes, stridor, chest wall tenderness - Cardiovascular Cardiovascular Exam: Present: regular rate, normal rhythm, normal heart sounds. Absent: systolic murmur, diastolic murmur, rubs, gallop - GI/Abdominal GI/Abdominal exam: Present: soft, normal bowel sounds - Rectal Rectal exam: Present: deferred - Extremities Exam Extremities exam: Present: normal inspection - Back Exam Back exam: Present: normal inspection, full ROM, CVA tenderness (L). Absent: t enderness, CVA tenderness (R), muscle spasm, paraspinal tenderness, rash noted - Neurological Exam Neurological exam: Present: alert, oriented X3 - Psychiatric Psychiatric exam: Present: normal affect, normal mood - Skin Skin exam: Present: warm, dry, intact, normal color. Absent: rash ED Course Vital Signs 06/16/18 20:54 Temperature 98.7 F Pulse Rate 79 Respiratory 18 Rate Blood Pressure 152/85 Blood Pressure 152/85 [Right] O2 Sat by Pulse 98 Oximetry ED Medical Decision Making - Lab Data Result diagrams: 06/16/18 20:03 06/16/18 20:03 Labs 06/16/18 06/16/18 06/16/18 20:03 20:03 21:11 WBC 3.9 L RBC 3.90 Hgb 11.6 Hct 35.3 MCV 91 MCH 30 MCHC 33 RDW 13.1 L Plt Count 210 Seg Neutrophils % Debt Recovery Officer Sodium 140 Potassium 3.8 Chloride 102.8 Carbon Dioxide 28 Anion Gap 13 BUN 8 Creatinine 1.1 Estimated GFR > 60 BUN/Creatinine Ratio 7 Glucose 92 Calcium 9.2 Total Bilirubin 0.30 AST 14 ALT 7 Alkaline Phosphatase 40 Total Protein 6.8 Albumin 4.3 Albumin/Globulin Ratio 1.7 Urine Color Yellow Urine Turbidity Slightly-cloudy Urine pH 6.0 Ur Specific [place] 1.019 Urine Protein <15 mg/dl Urine Glucose (UA) Neg Urine Ketones Neg Urine Blood Mod Urine Nitrite Neg Urine Bilirubin Neg Urine Urobilinogen 2.0 Ur Leukocyte Esterase Neg Urine WBC (Auto) 1.0 Urine RBC (Auto) 18.0 U Epithel Cells (Auto) 8.0 Urine Bacteria (Auto) 1+ Urine Mucus 2+ - Radiology Data Radiology results: report reviewed, image reviewed FINDINGS: The lung bases are without infiltrate, pneumothorax or pleural fluid collection. The heart appears to be normal size. The liver, spleen, pancreas, kidneys and adrenal glands are unremarkable on this study without contrast. The gallbladder is absent with surgical clips in the gallbladder fossa. The bowel is normal caliber. There is a small hiatal hernia. The appendix is normal caliber. There is a small amount of free fluid in the deep pelvis. The etiology of this finding is unclear. There is no evidence of pneumoperitoneum. The abdominal aorta is normal caliber. There is no definite evidence of pathologic intra-abdominal adenopathy by CT size criteria on this study without contrast. The urinary bladder is mildly distended and unremarkable in appearance. The bony structures are unremarkable. IMPRESSION: 1. Small amount of free fluid in the deep pelvis of unclear etiology. If further imaging is required, CT abdomen and pelvis with GI and IV contrast may be helpful for further evaluation. 2. Status post cholecystectomy. 3. Hiatal hernia. Transcribed By: ED Dictated By: AMBER BELLO MD Electronically Authenticated By: AMBER BELLO MD Signed Date/Time: 06/16/18 2990 - Medical Decision Making CT abdomen and pelvis negative for stone noted small hiatal hernia noted mild bladder distention urine positive for blood bacteria mucous Macrobid by mouth twice a day for 7 days ibuprofen when necessary pain follow-up with PCP and [facility] as scheduled pt verbalized agreement and understanding of discharge plan. pt dc'd to home in stable condition at this time. Critical care attestation.: If time is entered above; I have spent that time in minutes in the direct care of this critically ill patient, excluding procedure time. ED Disposition Clinical Impression: Dysuria, Hiatal hernia Abdominal pain Qualifiers: Abdominal location: left lower quadrant Qualified Code(s): R10.32 - Left lower quadrant pain Disposition: DC-01 TO HOME OR SELFCARE Is pt being admited?: No Does the pt Need Aspirin: No Condition: Stable Instructions: Abdominal Pain (ED), Dysuria (ED), Hiatal Hernia (ED) Prescriptions: Famotidine [Pepcid] 20 mg PO BID #60 tablet Nitrofurantoin Monohyd/M-Cryst [Macrobid 100 mg Capsule] 100 mg PO BID #14 capsule traMADol [Ultram] 50 mg PO Q6HR PRN #12 tablet PRN Reason: Pain Referrals: LINDA WOODRUFF MD [Primary Care Provider] - 3-5 Days Forms: Work/School Release Form(ED) Time of Disposition: 23:46
[2018-06-16 22:33] LABS: Basophils % (Manual) 0 % (0.0-1.8); Total Cells Counted 100
[2018-06-16 22:34] LABS: RBC Morphology Normal
--- NOTE | 2018-06-16 23:08 | Cat Scan Report ---
FINAL REPORT EXAM: CT ABDOMEN PELVIS WO CON HISTORY: abd pain TECHNIQUE: Axial helical imaging through the abdomen and pelvis with sagittal and coronal reformatte d images obtained. Comparison: None FINDINGS: The lung bases are without infiltrate, pneumothorax or pleural fluid collection. The heart appears to be normal size. The liver, spleen, pancreas, kidneys and adrenal glands are unremarkable on this study without contra st. The gallbladder is absent with surgical clips in the gallbladder fossa. The bowel is normal caliber. There is a small hiatal hernia. The appendix is normal caliber. There is a small amount of free fluid in the deep pelvis. The etiology of this finding is unclear. There is no evidence of pneumoperitoneum. The abdominal aorta is normal caliber. There is no definite evidence of pathologic intra-abdominal adenopathy by CT size criteria on this st udy without contrast. The urinary bladder is mildly distended and unremarkable in appearance. The bony structures are unremarkable. IMPRESSION: 1. Small amount of free fluid in the deep pelvis of unclear etiology. If further imaging is required, CT abdomen and pelvis with GI and IV contrast may be helpful for furt her evaluation. 2. Status post cholecystectomy. 3. Hiatal hernia.
[2018-06-18 12:54] VITALS: BP 152/85
== END 2018-06-17 00:30 | disposition home or self-care (01) ==
LOC: ED 20:48
DX: K44.9 Diaphragmatic hernia without obstruction or gangrene (principal); D64.9 Anemia, unspecified; F17.200 Nicotine dependence, unspecified, uncomplicated; E03.9 Hypothyroidism, unspecified; Z90.49 Acquired absence of other specified parts of digestive tract; Z90.710 Acquired absence of both cervix and uterus; Z88.1 Allergy status to other antibiotic agents; Z88.5 Allergy status to narcotic agent
CPT/HCPCS: 36415; 74176; 80053; 81001; 85007; 85025; 96374; 96375; 99284; J1885; J2405; J7030

== ENCOUNTER 2019-04-15 15:20 | Emergency (ER) | payer SELFPAY ==
[2019-04-15] MEDS ORDERED: IBUPROFEN 600 MG TAB PO ONE ×2 (16:36→16:38)
--- NOTE | 2019-04-15 16:40 | Event Note ---
ED Screening Note Date of service: 04/15/19 Time: 16:33 ED Screening Note: This initial assessment/diagnostic orders/clinical plan/treatment(s) is/are subject to change based on patients health status, clinical progression and re- assessment by fellow clinical providers in the ED. Further treatment and workup at subsequent clinical providers discretion. Patient/guardian urged not to elope from the ED as their condition may be serious if not clinically assessed and managed. Initial orders include: 49 yo female c/o cough, bodyaches chills, nausea, diarrhea, left flank pain X 2 days. UA, HCG, flu swab, CXR ordered. Given Motrin 600mg po for bodyaches.
--- NOTE | 2019-04-15 17:02 | XRay Report ---
CHEST 2 VIEWS INDICATION: MAIN: cough chills SINCE YESTERDAY. COMPARISON: 03/29/2018 FINDINGS: Support devices: None. Heart: Within normal limits. Lungs/pleura: No acute air space or interstitial disease. No pneumothorax. Additional findings: None. IMPRESSION: 1. No acute findings. Signer Name: Shon Gil MD Signed: 04/15/2019 4:58 PM Workstation Name: [id number]
[2019-04-15 18:07] LABS: Basophils % (Auto) 0.3 % (0.0-1.8); Hematocrit 38.4 % (30.3-42.9); Hemoglobin 12.6 gm/dl (10.1-14.3); Lymphocytes # (Auto) 0.4 K/mm3 (1.2-5.4); Lymphocytes % (Auto) 5.4 % (13.4-35.0); Mean Corpuscular HGB Conc 33 % (30-34); Mean Corpuscular Volume 92 fl (79-97); Monocytes # (Auto) 0.5 K/mm3 (0.0-0.8); Monocytes % (Auto) 6.5 % (0.0-7.3); Platelet Count 182 K/mm3 (140-440); Red Blood Count 4.17 M/mm3 (3.65-5.03); Red Cell Distribution Width 13.5 % (13.2-15.2)
[2019-04-15 18:50] LABS: HCG Qualitative,Urine Negative (Negative)
[2019-04-15 18:53] LABS: Bacteria,Urine 1+ /HPF (Negative); Bilirubin,Urine NEG (Negative); Blood,Urine LG (Negative); Color,Urine Yellow (Yellow); Mucus,Urine 1+ /HPF
[2019-04-15] MEDS ORDERED: predniSONE 20 MG TAB PO ONE (20:08)
--- NOTE | 2019-04-15 20:14 | Emergency Department Report ---
- General Chief Complaint: Upper Respiratory Infection Stated Complaint: FLU SX Time Seen by Provider: 04/15/19 16:32 Source: patient Mode of arrival: Ambulatory Limitations: No Limitations - History of Present Illness Initial Comments: The patient is a 49-year-old -Citizen Of [place] female with no past medical history presents to the ED with complaint of acute onset persistent nasal and sinus congestion, sore throat, frontal sinus pressure and headache, dry cough and severely diffuse body aches and pains for the last 2 days. Patient also complains of subjective fever and chills. Patient denies dizziness, chest pain, shortness of breath, nausea, vomiting, diarrhea, abdominal pain, change in vision or syncope, dysuria or urinary frequency and urgency. MD Complaint: fever, cough, sore throat, rhinorrhea, nasal congestion, sinus pain -: Sudden, days(s) (2) Severity: severe Severity scale (0 -10): 8 Quality: sharp, aching Consistency: constant Improves With: NSAID Worsens With: nothing Context: sick contacts Associated Symptoms: denies other symptoms, fever, chills, myalgias, headache, rhinorrhea, nasal congestion, sore throat, cough. denies: stiff neck, shortness of breath, abdominal pain, nausea, vomiting, diarrhea, dysuria, rash, right sweats, weight loss, hoarseness, ear pain Treatments Prior to Arrival: none - Related Data Previous Rx's Medication Instructions Recorded Last Taken Type Acetaminophen/Codeine [Tylenol #3] 1 tab PO Q6H PRN #12 tab 07/23/16 Unknown Rx Diclofenac Sodium 75 mg PO BID #20 tablet. 07/23/16 Unknown Rx Cyclobenzaprine [Flexeril] 10 mg PO TID PRN #20 tablet 01/11/17 Unknown Rx HYDROcodone/APAP 5-325 [[place] 1 - 2 each PO Q6HR PRN #14 tablet 01/11/17 Unknown Rx 5/325] Ibuprofen [Motrin 800 MG tab] 800 mg PO Q8HR PRN #20 tablet 01/11/17 Unknown Rx Levothyroxine [Synthroid] 125 mcg PO QAM #60 tablet 01/11/17 Unknown Rx Azithromycin [Zithromax Z-JAN] 250 mg PO DAILY #6 tablet 04/25/17 Unknown Rx Benzonatate [Tessalon Perle] 100 mg PO Q8H PRN #20 capsule 04/25/17 Unknown Rx Levothyroxine [Synthroid] 125 mcg PO QAM #30 tablet 04/25/17 Unknown Rx Ondansetron [Zofran Odt] 4 mg PO TID PRN #12 tab.rapdis 11/22/17 Unknown Rx Sulfamethoxazole/Trimethoprim 1 each PO BID 3 Days #6 tablet 11/22/17 Unknown Rx [Bactrim DS TAB] ALBUTEROL Inhaler(NF) [VENTOLIN 1 puff IH Q4-6H PRN #1 inha 03/29/18 Unknown Rx Inhaler(NF)] Azithromycin [Zithromax Z-JAN] 250 mg PO DAILY #6 tablet 03/29/18 Unknown Rx Benzonatate [Tessalon Perle] 100 mg PO Q8H PRN #20 capsule 03/29/18 Unknown Rx Ibuprofen [Motrin 600 MG tab] 600 mg PO Q8H PRN #20 tablet 03/29/[address] [place]/M-Cryst 100 mg PO Q12HR #14 capsule 03/29/18 Unknown Rx [Macrobid CAP] Famotidine [Pepcid] 20 mg PO BID #60 tablet 06/16/18 Unknown Rx Nitrofurantoin Monohyd/M-Cryst 100 mg PO BID #14 capsule 06/16/18 Unknown Rx [Macrobid 100 mg Capsule] traMADoL [Ultram] 50 mg PO Q6HR PRN #12 tablet 06/16/18 Unknown Rx Benzonatate [Tessalon Perles] 100 mg PO Q8HR #30 capsule 04/15/19 Unknown Rx Benzonatate [Tessalon Perles] 100 mg PO Q8HR PRN #30 capsule 04/15/19 Unknown Rx DOXYCYCLINE Hyclate [Vibramycin 100 mg PO Q12HR #20 capsule 04/15/19 Unknown Rx CAP] Ibuprofen [Motrin] 600 mg PO Q8H PRN #20 tablet 04/15/19 Unknown Rx Prednisone [predniSONE 10 mg 10 mg PO .TAPER #21 tab.ds.pk 04/15/19 Unknown Rx (6-Day Pack, 21 Tabs)] Prednisone [predniSONE 10 mg 10 mg PO .TAPER #21 tab.ds.pk 04/15/19 Unknown Rx (6-Day Pack, 21 Tabs)] Allergies Allergy/AdvReac Type Severity Reaction Status Date / Time cefoxitin sodium Allergy Rash Verified 03/29/18 07:55 [From Mefoxin] oxycodone HCl [From Percocet] Allergy Rash Verified 03/29/18 07:55 ED Review of Systems ROS: Stated complaint: FLU SX Other details as noted in HPI Constitutional: chills, fever, malaise Eyes: denies: eye pain, eye discharge, vision change ENT: throat pain, congestion. denies: ear pain Respiratory: cough. denies: shortness of breath, SOB with exertion, SOB at rest, wheezing Cardiovascular: denies: chest pain, palpitations, dyspnea on exertion, syncope, paroxysmal nocturnal dyspnea Endocrine: no symptoms reported Gastrointestinal: denies: abdominal pain, nausea, vomiting, diarrhea Genitourinary: denies: urgency, dysuria, discharge Musculoskeletal: arthralgia, myalgia. denies: back pain, joint swelling Skin: denies: rash, lesions Neurological: headache. denies: weakness, paresthesias Psychiatric: denies: anxiety, depression Hematological/Lymphatic: denies: easy bleeding, easy bruising ED Past Medical Hx - Past Medical History Previous Medical History?: Yes Hx Hypertension: No Hx CVA: No Hx Heart Attack/AMI: No Hx Congestive Heart Failure: No Hx Diabetes: No Hx Deep Vein Thrombosis: No Hx Pulmonary Embolism: No Hx GERD: No Hx Liver Disease: No Hx Renal Disease: No Hx Sickle Cell Disease: No Hx Arthritis: No Hx Headaches / Migraines: No Hx Seizures: No Hx Kidney Stones: No Hx Psychiatric Treatment: No Hx Asthma: No Hx COPD: No Hx Tuberculosis: No Hx Dementia: No Hx HIV: No Additional medical history: hypothyroidism, Anemia - Surgical History Past Surgical History?: Yes Hx Cholecystectomy: Yes Additional Surgical History: hysterectomy 2014 - Social History Smoking Status: Never Smoker - Medications Home Medications: Home Medications Medication Instructions Recorded Confirmed Last Taken Type Acetaminophen/Codeine [Tylenol #3] 1 tab PO Q6H PRN #12 tab 07/23/16 Unknown Rx Diclofenac Sodium 75 mg PO BID #20 tablet. 07/23/16 Unknown Rx Cyclobenzaprine [Flexeril] 10 mg PO TID PRN #20 tablet 01/11/17 Unknown Rx HYDROcodone/APAP 5-325 [[place] 1 - 2 each PO Q6HR PRN #14 tablet 01/11/17 Unknown Rx 5/325] Ibuprofen [Motrin 800 MG tab] 800 mg PO Q8HR PRN #20 tablet 01/11/17 Unknown Rx Levothyroxine [Synthroid] 125 mcg PO QAM #60 tablet 01/11/17 Unknown Rx Azithromycin [Zithromax Z-JAN] 250 mg PO DAILY #6 tablet 04/25/17 Unknown Rx Benzonatate [Tessalon Perle] 100 mg PO Q8H PRN #20 capsule 04/25/17 Unknown Rx Levothyroxine [Synthroid] 125 mcg PO QAM #30 tablet 04/25/17 Unknown Rx Ondansetron [Zofran Odt] 4 mg PO TID PRN #12 tab.rapdis 11/22/17 Unknown Rx Sulfamethoxazole/Trimethoprim 1 each PO BID 3 Days #6 tablet 11/22/17 Unknown Rx [Bactrim DS TAB] ALBUTEROL Inhaler(NF) [VENTOLIN 1 puff IH Q4-6H PRN #1 inha 03/29/18 Unknown Rx Inhaler(NF)] Azithromycin [Zithromax Z-JAN] 250 mg PO DAILY #6 tablet 03/29/18 Unknown Rx Benzonatate [Tessalon Perle] 100 mg PO Q8H PRN #20 capsule 03/29/18 Unknown Rx Ibuprofen [Motrin 600 MG tab] 600 mg PO Q8H PRN #20 tablet 03/29/[address] [place]/M-Cryst 100 mg PO Q12HR #14 capsule 03/29/18 Unknown Rx [Macrobid CAP] Famotidine [Pepcid] 20 mg PO BID #60 tablet 06/16/18 Unknown Rx Nitrofurantoin Monohyd/M-Cryst 100 mg PO BID #14 capsule 06/16/18 Unknown Rx [Macrobid 100 mg Capsule] traMADoL [Ultram] 50 mg PO Q6HR PRN #12 tablet 06/16/18 Unknown Rx Benzonatate [Tessalon Perles] 100 mg PO Q8HR #30 capsule 04/15/19 Unknown Rx Benzonatate [Tessalon Perles] 100 mg PO Q8HR PRN #30 capsule 04/15/19 Unknown Rx DOXYCYCLINE Hyclate [Vibramycin 100 mg PO Q12HR #20 capsule 04/15/19 Unknown Rx CAP] Ibuprofen [Motrin] 600 mg PO Q8H PRN #20 tablet 04/15/19 Unknown Rx Prednisone [predniSONE 10 mg 10 mg PO .TAPER #21 tab.ds.pk 04/15/19 Unknown Rx (6-Day Pack, 21 Tabs)] Prednisone [predniSONE 10 mg 10 mg PO .TAPER #21 tab.ds.pk 04/15/19 Unknown Rx (6-Day Pack, 21 Tabs)] ED Physical Exam - General Limitations: No Limitations General appearance: alert, in no apparent distress - Head Head exam: Present: atraumatic, normocephalic, normal inspection - Eye Eye exam: Present: normal appearance, PERRL, EOMI Pupils: Present: normal accommodation - ENT ENT exam: Present: normal orophraynx, mucous membranes moist, TM's normal bilaterally, normal external ear exam, other (grossly congested nasal passages, palpable frontal sinus tenderness) - Neck Neck exam: Present: normal inspection, full ROM, lymphadenopathy (anterior cervical lymphadenopathy) - Respiratory Respiratory exam: Present: normal lung sounds bilaterally. Absent: respiratory distress, wheezes, rales, stridor, chest wall tenderness, decreased breath sounds - Cardiovascular Cardiovascular Exam: Present: normal rhythm, tachycardia, normal heart sounds. Absent: systolic murmur, diastolic murmur, rubs, gallop - GI/Abdominal GI/Abdominal exam: Present: soft, normal bowel sounds. Absent: tenderness, guarding, rebound, hyperactive bowel sounds, hypoactive bowel sounds, organomegaly - Extremities Exam Extremities exam: Present: normal inspection, full ROM, normal capillary refill - Back Exam Back exam: Present: normal inspection, full ROM - Neurological Exam Neurological exam: Present: alert, oriented X3, CN II-XII intact, normal gait, reflexes normal - Psychiatric Psychiatric exam: Present: normal affect, normal mood - Skin Skin exam: Present: warm, dry, intact, normal color. Absent: rash ED Course Vital Signs 04/15/19 04/15/19 04/15/19 16:18 16:45 23:55 Temperature 99.7 F H Pulse Rate 110 H 84 Respiratory 18 18 16 Rate Blood Pressure 135/70 Blood Pressure 125/70 [Right] O2 Sat by Pulse 100 99 Oximetry 04/16/19 04:13 Temperature Pulse Rate 84 Respiratory 16 Rate Blood Pressure Blood Pressure 125/70 [Right] O2 Sat by Pulse 99 Oximetry - Reevaluation(s) Reevaluation #1: 04/15/19 20:13 49-year-old female presented to the ED with nasal and sinus congestion, frontal sinus pressure and headache with a dry cough and body aches. Patient treated for pain in the ED. On reevaluation, patient diaphoretic and felt better with pain medications. Chest x-rays shows no acute cardiopulmonary abnormalities or pneumonitis. Lab test results are nonactionable. ED Medical Decision Making - Lab Data Result diagrams: 04/15/19 17:44 - Radiology Data Radiology results: report reviewed, image reviewed Chest x-ray shows no acute cardiopulmonary abnormalities or pneumonitis. - Medical Decision Making This is a 49-year-old female who presented to the ED with acute onset persistent nasal and sinus congestion, frontal sinus pressure and headache, diffuse body aches and pains, dry cough and lack of appetite. In the ED, patient is alert and oriented 3, tachycardic but afebrile in triage. Patient was treated for pain with ibuprofen and also given prednisone. Chest x-ray shows no acute cardiopulmonary abnormalities or pneumonitis. Lab test results were reviewed and all nonactionable. On reevaluation, patient's pain is well controlled with medications, tachycardia resolved on reevaluation, patient's symptoms are likely due to acute upper respiratory or flulike symptoms. Patient was discharged home on medications and advised to follow-up with her primary care physician in 5-7 days for reevaluation or return to the ED immediately if symptoms get worse. - Differential Diagnosis Acute URI; bronchitis; Sinusitis; Influenza Critical care attestation.: If time is entered above; I have spent that time in minutes in the direct care of this critically ill patient, excluding procedure time. ED Disposition Clinical Impression: Acute upper respiratory infection, Flu-like symptoms Acute frontal sinusitis Qualifiers: Recurrence: non-recurrent Qualified Code(s): J01.10 - Acute frontal sinusitis, unspecified Acute bronchitis Qualifiers: Bronchitis organism: unspecified organism Qualified Code(s): J20.9 - Acute bronchitis, unspecified Disposition: DC-01 TO HOME OR SELFCARE Is pt being admited?: No Does the pt Need Aspirin: No Condition: Stable Instructions: Upper Respiratory Infection (ED), Acute Bronchitis (ED), Acute Bacterial Rhinosinusitis (ED) Additional Instructions: Take medication with food, drink plenty fluids and follow-up with your primary care physician in 5-7 days for reevaluation. Return to the ED immediately if symptoms get worse. Prescriptions: Ibuprofen [Motrin] 600 mg PO Q8H PRN #20 tablet PRN Reason: Pain Prednisone [predniSONE 10 mg (6-Day Pack, 21 Tabs)] 10 mg PO .TAPER #21 tab.ds.pk Benzonatate [Tessalon Perles] 100 mg PO Q8HR PRN #30 capsule PRN Reason: Cough Benzonatate [Tessalon Perles] 100 mg PO Q8HR #30 capsule DOXYCYCLINE Hyclate [Vibramycin CAP] 100 mg PO Q12HR #20 capsule Referrals: [facility] [Outside] - 3-5 Days Time of Disposition: 20:21 Print Language: MARTINIQUAIS
[2019-04-15 23:57] VITALS: BP 125/70
== END 2019-04-15 20:10 | disposition home or self-care (01) ==
LOC: ED 15:20
DX: J06.9 Acute upper respiratory infection, unspecified (principal); J01.10 Acute frontal sinusitis, unspecified; J20.9 Acute bronchitis, unspecified; Z98.890 Other specified postprocedural states; Z88.1 Allergy status to other antibiotic agents; Z88.5 Allergy status to narcotic agent
CPT/HCPCS: 71046; 81001; 81025; 85025; 99284; J7512

== ENCOUNTER 2019-05-08 09:02 | Emergency (ER) | payer SELFPAY | END 2019-05-08 10:57 | disposition home or self-care (01) | LOC: ED 09:02 ==

== ENCOUNTER 2019-08-26 02:09 | Emergency (ER) | payer SELFPAY ==
[2019-08-26 02:15] VITALS: BP 148/89
[2019-08-26] MEDS ORDERED: CYCLOBENZAPRINE 10 MG TAB PO ONE (04:03)
[2019-08-26] MEDS ORDERED: KETOROLAC 30 MG/1 ML INJ IM ONE (04:03)
[2019-08-26 05:21] LABS: Bilirubin,Urine NEG (Negative); Blood,Urine MOD (Negative); Color,Urine Yellow (Yellow); Mucus,Urine 3+ /HPF; Urobilinogen,Urine < 2.0 mg/dL (<2.0)
--- NOTE | 2019-08-26 06:52 | Emergency Department Report ---
ED Back Pain/Injury HPI - General Chief Complaint: Urogenital-Female Stated Complaint: LOWER RT BACK PAIN Source: patient Limitations: No Limitations - History of Present Illness Initial Comments: Patient is 49-year-old -Serbian female with a history of chronic hypothyroidism who presents to the ED with complaint of acute onset persistent nontraumatic low back pain with urinary frequency and urgency for the last 1 week, worse in the last 2 days. Patient states that she has been taking pntg-umd-nrejbad medication with no relief. Patient states that she initially thought that she was having acute to urinary tract infection and has been drinking cranberry juice but that in the last 12 hours her symptoms have worsened. Patient denies dizziness, fever, chills, nausea, vomiting, vaginal bl eeding, vaginal discharge, dysuria, diarrhea, abdominal pain, cough, chest pain or shortness of breath and sore throat. Patient also denies heavy lifting or fall. MD Complaint: back pain, other (urinary urgency and frequency) -: Sudden, week(s) (1) Similar Symptoms Previously: Yes Place: home Radiation: none Severity: severe Severity scale (0 -10): 7 Quality: sharp, aching Consistency: constant Improves With: none Worsens With: none Context: unknown Associated Symptoms: denies other symptoms. denies: confusion, weakness, chest pain, numbness, difficulty walking, cough, difficulty urinating, diaphoresis, incontinence, fever/chills, constipation, headaches, abdominal pain, loss of appetite, malaise, nausea/vomiting, rash, seizure, shortness of breath - Related Data Previous Rx's Medication Instructions Recorded Last Taken Type Acetaminophen/Codeine [Tylenol #3] 1 tab PO Q6H PRN #12 tab 07/23/16 Unknown Rx Diclofenac Sodium 75 mg PO BID #20 tablet. 07/23/16 Unknown Rx Cyclobenzaprine [Flexeril] 10 mg PO TID PRN #20 tablet 01/11/17 Unknown Rx HYDROcodone/APAP 5-325 [[place] 1 - 2 each PO Q6HR PRN #14 tablet 01/11/17 Unknown Rx 5/325] Ibuprofen [Motrin 800 MG tab] 800 mg PO Q8HR PRN #20 tablet 01/11/17 Unknown Rx Levothyroxine [Synthroid] 125 mcg PO QAM #60 tablet 01/11/17 Unknown Rx Azithromycin [Zithromax Z-JAN] 250 mg PO DAILY #6 tablet 04/25/17 Unknown Rx Benzonatate [Tessalon Perle] 100 mg PO Q8H PRN #20 capsule 04/25/17 Unknown Rx Levothyroxine [Synthroid] 125 mcg PO QAM #30 tablet 04/25/17 Unknown Rx Ondansetron [Zofran Odt] 4 mg PO TID PRN #12 tab.rapdis 11/22/17 Unknown Rx Sulfamethoxazole/Trimethoprim 1 each PO BID 3 Days #6 tablet 11/22/17 Unknown Rx [Bactrim DS TAB] ALBUTEROL Inhaler(NF) [VENTOLIN 1 puff IH Q4-6H PRN #1 inha 03/29/18 Unknown Rx Inhaler(NF)] Azithromycin [Zithromax Z-JAN] 250 mg PO DAILY #6 tablet 03/29/18 Unknown Rx Benzonatate [Tessalon Perle] 100 mg PO Q8H PRN #20 capsule 03/29/18 Unknown Rx Ibuprofen [Motrin 600 MG tab] 600 mg PO Q8H PRN #20 tablet 03/29/18 Unknown Rx Nitrofurantoin Dawes/M-Cryst 100 mg PO Q12HR #14 capsule 03/29/18 Unknown Rx [Macrobid CAP] Famotidine [Pepcid] 20 mg PO BID #60 tablet 06/16/18 Unknown Rx Nitrofurantoin Monohyd/M-Cryst 100 mg PO BID #14 capsule 06/16/18 Unknown Rx [Macrobid 100 mg Capsule] traMADoL [Ultram] 50 mg PO Q6HR PRN #12 tablet 06/16/18 Unknown Rx Benzonatate [Tessalon Perles] 100 mg PO Q8HR #30 capsule 04/15/19 Unknown Rx Benzonatate [Tessalon Perles] 100 mg PO Q8HR PRN #30 capsule 04/15/19 Unknown Rx DOXYCYCLINE Hyclate [Vibramycin 100 mg PO Q12HR #20 capsule 04/15/19 Unknown Rx CAP] Ibuprofen [Motrin] 600 mg PO Q8H PRN #20 tablet 04/15/19 Unknown Rx Prednisone [predniSONE 10 mg 10 mg PO .TAPER #21 tab.ds.pk 04/15/19 Unknown Rx (6-Day Pack, 21 Tabs)] Prednisone [predniSONE 10 mg 10 mg PO .TAPER #21 tab.ds.pk 04/15/19 Unknown Rx (6-Day Pack, 21 Tabs)] Cyclobenzaprine [Flexeril] 10 mg PO TID PRN #15 tablet 05/08/19 Unknown Rx HYDROcodone/APAP 5-325 [[place] 1 each PO Q6HR PRN #10 tablet 05/08/19 Unknown Rx 5/325] Ibuprofen [Motrin 800 MG tab] 800 mg PO TID 5 Days #15 tablet 05/08/19 Unknown Rx Naproxen 500 mg PO Q12H PRN #24 tablet 08/26/19 Unknown Rx methOCARBAMOL [Robaxin TAB] 750 mg PO Q8H PRN #21 tablet 08/26/19 Unknown Rx traMADoL [Ultram] 50 mg PO Q6HR PRN #12 tablet 08/26/19 Unknown Rx Allergies Allergy/AdvReac Type Severity Reaction Status Date / Time cefoxitin sodium Allergy Rash Verified 08/26/19 02:14 [From Mefoxin] oxycodone HCl [From Percocet] Allergy Rash Verified 08/26/19 02:14 ED Review of Systems ROS: Stated complaint: LOWER RT BACK PAIN Other details as noted in HPI Constitutional: denies: chills, fever Eyes: denies: eye pain, eye discharge, vision change ENT: denies: ear pain, throat pain Respiratory: denies: cough, shortness of breath, wheezing Cardiovascular: denies: chest pain, palpitations Endocrine: no symptoms reported Gastrointestinal: denies: abdominal pain, nausea, diarrhea Genitourinary: urgency, frequency. denies: dysuria, discharge Musculoskeletal: back pain (lower). denies: joint swelling, arthralgia Skin: denies: rash, lesions Neurological: denies: headache, weakness, paresthesias Psychiatric: denies: anxiety, depression Hematological/Lymphatic: denies: easy bleeding, easy bruising ED Past Medical Hx - Past Medical History Hx Hypertension: No Hx CVA: No Hx Heart Attack/AMI: No Hx Congestive Heart Failure: No Hx Diabetes: No Hx Deep Vein Thrombosis: No Hx Pulmonary Embolism: No Hx GERD: No Hx Liver Disease: No Hx Renal Disease: No Hx Sickle Cell Disease: No Hx Arthritis: No Hx Headaches / Migraines: No Hx Seizures: No Hx Kidney Stones: No Hx Psychiatric Treatment: No Hx Asthma: No Hx COPD: No Hx Tuberculosis: No Hx Dementia: No Hx HIV: No Additional medical history: hypothyroidism, Anemia - Surgical History Hx Cholecystectomy: Yes Additional Surgical History: hysterectomy 2014 - Social History Smoking Status: Former Smoker Substance Use Type: Alcohol - Medications Home Medications: Home Medications Medication Instructions Recorded Confirmed Last Taken Type Acetaminophen/Codeine [Tylenol #3] 1 tab PO Q6H PRN #12 tab 07/23/16 Unknown Rx Diclofenac Sodium 75 mg PO BID #20 tablet.dr 07/23/16 Unknown Rx Cyclobenzaprine [Flexeril] 10 mg PO TID PRN #20 tablet 01/11/17 Unknown Rx HYDROcodone/APAP 5-325 [[place] 1 - 2 each PO Q6HR PRN #14 tablet 01/11/17 Unknown Rx 5/325] Ibuprofen [Motrin 800 MG tab] 800 mg PO Q8HR PRN #20 tablet 01/11/17 Unknown Rx Levothyroxine [Synthroid] 125 mcg PO QAM #60 tablet 01/11/17 Unknown Rx Azithromycin [Zithromax Z-JAN] 250 mg PO DAILY #6 tablet 04/25/17 Unknown Rx Benzonatate [Tessalon Perle] 100 mg PO Q8H PRN #20 capsule 04/25/17 Unknown Rx Levothyroxine [Synthroid] 125 mcg PO QAM #30 tablet 04/25/17 Unknown Rx Ondansetron [Zofran Odt] 4 mg PO TID PRN #12 tab.rapdis 11/22/17 Unknown Rx Sulfamethoxazole/Trimethoprim 1 each PO BID 3 Days #6 tablet 11/22/17 Unknown Rx [Bactrim DS TAB] ALBUTEROL Inhaler(NF) [VENTOLIN 1 puff IH Q4-6H PRN #1 inha 03/29/18 Unknown Rx Inhaler(NF)] Azithromycin [Zithromax Z-JAN] 250 mg PO DAILY #6 tablet 03/29/18 Unknown Rx Benzonatate [Tessalon Perle] 100 mg PO Q8H PRN #20 capsule 03/29/18 Unknown Rx Ibuprofen [Motrin 600 MG tab] 600 mg PO Q8H PRN #20 tablet 03/29/18 Unknown Rx Nitrofurantoin Daw[place]/M-Cryst 100 mg PO Q12HR #14 capsule 03/29/18 Unknown Rx [Macrobid CAP] Famotidine [Pepcid] 20 mg PO BID #60 tablet 06/16/18 Unknown Rx Nitrofurantoin Monohyd/M-Cryst 100 mg PO BID #14 capsule 06/16/18 Unknown Rx [Macrobid 100 mg Capsule] traMADoL [Ultram] 50 mg PO Q6HR PRN #12 tablet 06/16/18 Unknown Rx Benzonatate [Tessalon Perles] 100 mg PO Q8HR #30 capsule 04/15/19 Unknown Rx Benzonatate [Tessalon Perles] 100 mg PO Q8HR PRN #30 capsule 04/15/19 Unknown Rx DOXYCYCLINE Hyclate [Vibramycin 100 mg PO Q12HR #20 capsule 04/15/19 Unknown Rx CAP] Ibuprofen [Motrin] 600 mg PO Q8H PRN #20 tablet 04/15/19 Unknown Rx Prednisone [predniSONE 10 mg 10 mg PO .TAPER #21 tab.ds.pk 04/15/19 Unknown Rx (6-Day Pack, 21 Tabs)] Prednisone [predniSONE 10 mg 10 mg PO .TAPER #21 tab.ds.pk 04/15/19 Unknown Rx (6-Day Pack, 21 Tabs)] Cyclobenzaprine [Flexeril] 10 mg PO TID PRN #15 tablet 05/08/19 Unknown Rx HYDROcodone/APAP 5-325 [[place] 1 each PO Q6HR PRN #10 tablet 05/08/19 Unknown Rx 5/325] Ibuprofen [Motrin 800 MG tab] 800 mg PO TID 5 Days #15 tablet 05/08/19 Unknown Rx Naproxen 500 mg PO Q12H PRN #24 tablet 08/26/19 Unknown Rx methOCARBAMOL [Robaxin TAB] 750 mg PO Q8H PRN #21 tablet 08/26/19 Unknown Rx traMADoL [Ultram] 50 mg PO Q6HR PRN #12 tablet 08/26/19 Unknown Rx ED Physical Exam - General Limitations: No Limitations General appearance: alert, in no apparent distress - Head Head exam: Present: atraumatic, normocephalic, normal inspection - Eye Eye exam: Present: normal appearance, PERRL, EOMI Pupils: Present: normal accommodation - ENT ENT exam: Present: normal exam, normal orophraynx, mucous membranes moist, TM's normal bilaterally, normal external ear exam - Neck Neck exam: Present: normal inspection, full ROM - Respiratory Respiratory exam: Present: normal lung sounds bilaterally. Absent: respiratory distress, wheezes, rales, rhonchi, stridor, chest wall tenderness, accessory muscle use - Cardiovascular Cardiovascular Exam: Present: regular rate, normal rhythm, normal heart sounds. Absent: systolic murmur, diastolic murmur, rubs, gallop - GI/Abdominal GI/Abdominal exam: Present: soft, normal bowel sounds. Absent: tenderness, guarding - Extremities Exam Extremities exam: Present: normal inspection, full ROM, normal capillary refill. Absent: tenderness - Back Exam Back exam: Present: normal inspection, full ROM, tenderness (Palpable lumbosacral paraspinal musculoskeletal tenderness), muscle spasm, paraspinal tenderness - Neurological Exam Neurological exam: Present: alert, oriented X3, CN II-XII intact, normal gait, reflexes normal - Psychiatric Psychiatric exam: Present: normal affect, normal mood, anxious - Skin Skin exam: Present: warm, dry, intact, normal color. Absent: rash ED Course Vital Signs 08/26/19 02:14 Temperature 98.7 F Pulse Rate 79 Respiratory 18 Rate Blood Pressure 148/89 O2 Sat by Pulse 98 Oximetry ED Medical Decision Making - Medical Decision Making This is 49-year-old -Serbian female with a history of chronic hypothyroidism who presents to the ED with complaint of acute onset persistent nontraumatic low back pain with urinary frequency and urgency for the last 1 week, worse in the last 2 days. Patient states that she has been taking dyry-okl-rsoeyic medication with no relief. Patient states that she initially thought that she was having acute to urinary tract infection and has been drinking cranberry juice but that in the last 12 hours her symptoms have worsened. In the ED, patient is alert and oriented x3 and is not in distress with normal vital signs. Patient was treated for pain in the ED. Urinalysis showed no acute urinary tract infection. On reevaluation, patient's pain is well controlled medications. Patient symptoms are likely due to muscle spasm of her lower back. Patient will discharge home on pain medications and muscle relaxants and was advised to follow-up with her primary care physician in 7 to 10 days for reevaluation or return to the ED immediately if symptoms get worse. - Differential Diagnosis Muscle spasm; Muscle strain; UTI; Kidney stones Critical care attestation.: If time is entered above; I have spent that time in minutes in the direct care of this critically ill patient, excluding procedure time. ED Disposition Clinical Impression: Spasm of muscle of lower back, Strain of muscle, fascia and tendon of lower back, initial encounter Acute low back pain Qualifiers: Back pain laterality: unspecified Sciatica presence: without sciatica Qualified Code(s): M54.5 - Low back pain Disposition: TO HOME OR SELFCARE Is pt being admited?: No Does the pt Need Aspirin: No Condition: Stable Instructions: Muscle Strain (ED), Acute Low Back Pain (ED), Muscle Spasm (ED) Additional Instructions: Take medication with food, drink plenty of fluids and follow-up with your primary care physician in 7 to 10 days for reevaluation. Return to the ED immediately if symptoms get worse. Prescriptions: Naproxen 500 mg PO Q12H PRN #24 tablet PRN Reason: Pain , Severe (7-10) methOCARBAMOL [Robaxin TAB] 750 mg PO Q8H PRN #21 tablet PRN Reason: Muscle Spasm traMADoL [Ultram] 50 mg PO Q6HR PRN #12 tablet PRN Reason: Pain Referrals: [facility] [Provider Group] - 7-10 days Time of Disposition: 06:54 Print Language: HUNGARIAN
== END 2019-08-26 07:16 | disposition home or self-care (01) ==
LOC: ED 02:09
DX: S39.012A Strain of muscle, fascia and tendon of lower back, initial encounter (principal); E03.9 Hypothyroidism, unspecified; D64.9 Anemia, unspecified; Z90.49 Acquired absence of other specified parts of digestive tract; Z90.710 Acquired absence of both cervix and uterus; Z79.1 Long term (current) use of non-steroidal anti-inflammatories (NSAID); Z79.2 Long term (current) use of antibiotics; Z79.899 Other long term (current) drug therapy; Z87.891 Personal history of nicotine dependence; Z88.8 Allergy status to other drugs, medicaments and biological substances; X58.XXXA Exposure to other specified factors, initial encounter; Y93.89 Activity, other specified; Y92.89 Other specified places as the place of occurrence of the external cause; Y99.8 Other external cause status
CPT/HCPCS: 81001; 96372; 99283; J1885

== ENCOUNTER 2019-12-21 16:04 | Emergency (ER) | payer SELFPAY ==
[2019-12-21 17:06] LABS: Basophils # (Auto) 0.1 K/mm3 (0.0-0.1); Basophils % (Auto) 0.9 % (0.0-1.8); Hematocrit 43.2 % (30.3-42.9); Hemoglobin 14.4 gm/dl (10.1-14.3); Lymphocytes # (Auto) 0.6 K/mm3 (1.2-5.4); Mean Corpuscular HGB Conc 33 % (30-34); Mean Corpuscular Volume 90 fl (79-97); Monocytes # (Auto) 0.2 K/mm3 (0.0-0.8); Monocytes % (Auto) 2.5 % (0.0-7.3); Platelet Count 297 K/mm3 (140-440); Red Blood Count 4.79 M/mm3 (3.65-5.03); Red Cell Distribution Width 13.4 % (13.2-15.2)
[2019-12-21] MEDS ORDERED: ONDANSETRON 4 MG/2 ML INJ IV ONE ×2 (17:25→20:03)
[2019-12-21] MEDS ORDERED: SODIUM CHLORIDE 0.9% 1000 ML 1,000 ML IV ONE ×2 (17:25→19:54)
[2019-12-21 17:27] LABS: Alanine Aminotransferase 11 units/L (7-56); BUN/Creatinine Ratio 8; Blood Urea Nitrogen 9 mg/dL (7-17); Calcium 10.2 mg/dL (8.4-10.2); Hemolysis Index 18
[2019-12-21] MEDS ORDERED: POTASSIUM CHLORIDE ER 10 MEQ TAB PO ONE (18:00)
[2019-12-21] MEDS ORDERED: KETOROLAC 30 MG/1 ML INJ IV ONE (18:16)
--- NOTE | 2019-12-21 19:28 | XRay Report ---
ABDOMEN 2 VIEW(S) INDICATION / CLINICAL INFORMATION: Abd pain. COMPARISON: None available. FINDINGS: TUBES / LINES: None. BOWEL GAS PATTERN: Scattered gas with mild bowel distention the left abdomen. The pattern is nonobstr uctive. No significant constipation. No free air. ADDITIONAL FINDINGS: Previous cholecystectomy. Metallic foreign bodies over the pelvis presumably lie on top of the patient. Clinical correlation recommended. Signer Name: Helio Chavira MD Signed: 12/21/2019 7:23 PM Workstation Name: [id number]
[2019-12-21 19:46] LABS: Bilirubin,Urine NEG (Negative); Blood,Urine LG (Negative); Color,Urine Straw (Yellow); Mucus,Urine FEW /HPF; Urobilinogen,Urine < 2.0 mg/dL (<2.0)
--- NOTE | 2019-12-21 19:56 | Emergency Department Report ---
HPI <DEJESUSANNA - Last Filed: 12/21/19 21:19> - HPI HPI: This is a 49-year-old female presents to the emergency department with a complaint of lower abdominal pain, nausea and vomiting after drinking heavily throughout the evening. She denies any history of alcoholism or alcohol dependence. Otherwise she denies any past medical history except for hypothyroidism and the patient is noncompliant with any levothyroxine or Synthroid. She has not taken anything for symptoms prior to presentation. No recent travel or sick contacts at home. She denies any fever, dysuria, vaginal bleeding or discharge, back pain. <MARLYS LEWIS Mike - Last Filed: 12/22/19 16:14> - General Chief Complaint: Nausea/Vomiting/Diarrhea Time Seen by Provider: 12/21/19 17:10 ED Past Medical Hx <OLEGANNA - Last Filed: 12/21/19 21:19> - Past Medical History Previous Medical History?: Yes Hx Hypertension: No Hx CVA: No Hx Heart Attack/AMI: No Hx Congestive Heart Failure: No Hx Diabetes: No Hx Deep Vein Thrombosis: No Hx Pulmonary Embolism: No Hx GERD: No Hx Liver Disease: No Hx Renal Disease: No Hx Sickle Cell Disease: No Hx Arthritis: No Hx Headaches / Migraines: No Hx Seizures: No Hx Kidney Stones: No Hx Psychiatric Treatment: No Hx Asthma: No Hx COPD: No Hx Tuberculosis: No Hx Dementia: No Hx HIV: No Additional medical history: hypothyroidism, Anemia - Surgical History Past Surgical History?: Yes Hx Cholecystectomy: Yes Additional Surgical History: hysterectomy 2015, thyroidectomy - Social History Smoking Status: Never Smoker Substance Use Type: Alcohol <MARLYS LEWIS Mike - Last Filed: 12/22/19 16:14> - Medications Home Medications: Home Medications Medication Instructions Recorded Confirmed Last Taken Type Levothyroxine [Synthroid] 125 mcg PO QAM #60 tablet 01/11/17 Unknown Rx Ibuprofen [Motrin] 800 mg PO Q8HR PRN #30 tablet 12/11/19 Unknown Rx Ondansetron [Zofran Odt] 4 mg PO Q8HR PRN #12 tab.rapdis 12/21/19 Unknown Rx ED Review of Systems ROS: Stated complaint: ETOH Other details as noted in HPI <ANNA DEJESUS - Last Filed: 12/21/19 21:19> ROS: Stated complaint: ETOH Other details as noted in HPI Comment: All other systems reviewed and negative Constitutional: denies: chills, fever Eyes: denies: eye pain, vision change ENT: denies: ear pain, throat pain Respiratory: denies: cough, shortness of breath Cardiovascular: denies: chest pain, palpitations Gastrointestinal: abdominal pain, nausea, vomiting Genitourinary: denies: dysuria, discharge Musculoskeletal: denies: back pain, arthralgia Skin: denies: rash, lesions Neurological: denies: headache, weakness <MARLYS LEWIS - Last Filed: 12/22/19 16:14> Physical Exam - Physical Exam Vital Signs: Vital Signs 12/21/19 12/21/19 12/21/19 16:21 17:45 20:09 Temperature 99.2 F Pulse Rate 69 66 70 Respiratory 18 16 Rate Blood Pressure 173/105 192/106 Blood Pressure 201/99 [Left] O2 Sat by Pulse 98 99 Oximetry 12/21/19 21:04 Temperature Pulse Rate 75 Respiratory 12 Rate Blood Pressure Blood Pressure 201/87 [Left] O2 Sat by Pulse 98 Oximetry <ANNA DEJESUS - Last Filed: 12/21/19 21:19> - Physical Exam Vital Signs: Vital Signs 12/21/19 12/21/19 16:21 17:45 Temperature 99.2 F Pulse Rate 69 66 Respiratory 18 16 Rate Blood Pressure 173/105 Blood Pressure 201/99 [Left] O2 Sat by Pulse 98 99 Oximetry Physical Exam: GENERAL: The patient is well-developed well-nourished. HENT: Normocephalic. Atraumatic. Patient has moist mucous membranes. EYES: Extraocular motions are intact. NECK: Supple. Trachea is midline. CHEST/LUNGS: Clear to auscultation. There is no respiratory distress noted. HEART/CARDIOVASCULAR: Regular. There is no tachycardia. ABDOMEN: Abdomen is soft. Lower abdominal tenderness to palpation. No guarding. Patient has normal bowel sounds. There is no abdominal distention. SKIN: Skin is warm and dry. NEURO: The patient is awake, alert, and oriented. The patient is cooperative. Normal speech. MUSCULOSKELETAL: There is no tenderness or deformity. There is no limitation range of motion. There is no evidence of acute injury. <MARLYS LEWIS - Last Filed: 12/22/19 16:14> ED Course Vital Signs 08/12/0212/21/19 12/21/19 16:21 17:45 20:09 Temperature 99.2 F Pulse Rate 69 66 70 Respiratory 18 16 Rate Blood Pressure 173/105 192/106 Blood Pressure 201/99 [Left] O2 Sat by Pulse 98 99 Oximetry 12/21/19 21:04 Temperature Pulse Rate 75 Respiratory 12 Rate Blood Pressure Blood Pressure 201/87 [Left] O2 Sat by Pulse 98 Oximetry <ANNA DEJESUS - Last Filed: 12/21/19 21:19> Vital Signs 12/21/19 12/21/19 16:21 17:45 Temperature 99.2 F Pulse Rate 69 66 Respiratory 18 16 Rate Blood Pressure 173/105 Blood Pressure 201/99 [Left] O2 Sat by Pulse 98 99 Oximetry <MARLYS LEWIS - Last Filed: 12/22/19 16:14> ED Medical Decision Making - Lab Data Result diagrams: 12/21/19 16:49 12/21/19 16:49 - Radiology Data Patient: DAVID BATES MR#: [id number] : 1970 Acct:[id number] Age/Sex: 49 / F ADM Date: 12/21/19 Loc: ED Attending Dr: Ordering Physician: MARLYS LEWIS DO Date of Service: 12/21/19 Procedure(s): CT abdomen pelvis w con Accession Number(s): [id number] cc: MARLYS LEWIS DO CT abdomen pelvis w con INDICATION: Abd pain. TECHNIQUE: All CT scans at this location are performed using the following dose modulation technique: Automated exposure control. CONTRAST: Omnipaque 300, 100 cc IV injection. COMPARISON: None available. CT evaluation of the parenchymal organs demonstrates a tiny left hepatic cyst and one CM left renal cyst. The remaining parenchymal organs are unremarkable. Negative for abdominal mass, fluid or inflammation. The bowel is not dilated or thickened. A hiatal hernia is small/moderate. Status post previous hysterectomy. No biliary dilatation. CT PELVIS: Negative for mass, adenopathy or inflammation. The appendix is normal. Status post previous hysterectomy. IMPRESSION: Negative for obstruction or localized inflammation. Signer Name: Helio Chavira MD Signed: 12/21/2019 8:23 PM Workstation Name: [id number] - Medical Decision Making Patient is abdominal discomfort is improving. CT shows no evidence of acute process. Patient will be discharged home. We did note the elevated blood pressure. Patient states remotely she has a history of being on a water pill however she was taken off. Patient's blood pressure is less than 180 systolic a nd she is showing no evidence of any endorgan damage. Patient will be able to follow-up with her primary care physicians regarding the need for starting antihypertensive medications. <ANNA DEJESUS - Last Filed: 12/21/19 21:19> - Lab Data Result diagrams: 12/21/19 16:49 12/21/19 16:49 - Medical Decision Making This patient presented with nausea, vomiting and abdominal discomfort after drinking heavily overnight and into this morning. Abdomen was soft, nondistended and nontoxic in appearance. Labs were mostly unremarkable. CT scan did not show any acute process. The results were followed by my colleague and the patient was discharged home to follow-up with a primary care physician regarding her symptoms and her hypertension. She was able to pass an oral challenge in the emergency department. <MARLYS LEWIS S - Last Filed: 12/22/19 16:14> Critical care attestation.: If time is entered above; I have spent that time in minutes in the direct care of this critically ill patient, excluding procedure time. <ANNA DEJESUS - Last Filed: 12/21/19 21:19> Critical Care Time: No Critical care attestation.: If time is entered above; I have spent that time in minutes in the direct care of this critically ill patient, excluding procedure time. <MARLYS LEWIS S - Last Filed: 12/22/19 16:14> ED Disposition Is pt being admited?: No Does the pt Need Aspirin: No Time of Disposition: 21:20 <ANNA DEJESUS - Last Filed: 12/21/19 21:19> Is pt being admited?: No <MARLYS LEWIS S - Last Filed: 12/22/19 16:14> Clinical Impression: Hypokalemia, Elevated blood pressure reading Nausea & vomiting Qualifiers: Vomiting type: unspecified Vomiting Intractability: non-intractable Qualified Code(s): R11.2 - Nausea with vomiting, unspecified Hypertension Qualifiers: Hypertension type: essential hypertension Qualified Code(s): I10 - Essential (primary) hypertension Abdominal pain Qualifiers: Abdominal location: lower abdomen, unspecified Qualified Code(s): R10.30 - Lower abdominal pain, unspecified Alcoholic gastritis Qualifiers: Chronicity: acute Gastritis bleeding: without bleeding Qualified Code(s): K29.20 - Alcoholic gastritis without bleeding Disposition: TO HOME OR SELFCARE Condition: Stable Instructions: Acute Nausea and Vomiting (ED), Abdominal Pain (ED), Hypertension (ED) Additional Instructions: Please follow-up with a primary care physician in the next few days. Return to the emergency department with any worsening of your symptoms or with any acute distress. Try to stay away from foods that are high in salt and caffeinated products. Keep a blood pressure log. Prescriptions: Ondansetron [Zofran Odt] 4 mg PO Q8HR PRN #12 tab.rapdis PRN Reason: Nausea Referrals: [facility] [Provider Group] - 3-5 Days ABDIRASHID JENKINS DO [Staff Physician] - 3-5 Days JAYME RODRÍGUEZ MD [Staff Physician] - 3-5 Days PRIMARY [facility]ARE, [Primary Care Provider] - 3-5 Days
[2019-12-21] MEDS ORDERED: hydrALAZINE 20 MG/1 ML INJ IV ONE (19:57)
[2019-12-21] MEDS ORDERED: MORPHINE 4 MG/1 ML INJ IV ONE (20:03)
--- NOTE | 2019-12-21 20:28 | Cat Scan Report ---
CT abdomen pelvis w con INDICATION: Abd pain. TECHNIQUE: All CT scans at this location are performed using the following dose modulation technique: Automated exposure control. CONTRAST: Omnipaque 300, 100 cc IV injection. COMPARISON: None available. CT evaluation of the parenchymal organs demonstrates a tiny left hepatic cyst and one CM left renal c yst. The remaining parenchymal organs are unremarkable. Negative for abdominal mass, fluid or inflamm ation. The bowel is not dilated or thickened. A hiatal hernia is small/moderate. Status post previous hysterectomy. No biliary dilatation. CT PELVIS: Negative for mass, adenopathy or inflammation. The appendix is normal. Status post previous hysterectomy. IMPRESSION: Negative for obstruction or localized inflammation. Signer Name: Helio Chavira MD Signed: 12/21/2019 8:23 PM Workstation Name: [id number]
[2019-12-21 21:05] VITALS: BP 201/87
== END 2019-12-21 21:36 | disposition home or self-care (01) ==
LOC: ED 16:04
DX: K29.20 Alcoholic gastritis without bleeding (principal); E87.6 Hypokalemia; I10 Essential (primary) hypertension
CPT/HCPCS: 36415; 74019; 74177; 80053; 81001; 83690; 84703; 85025; 96361; 96374; 96375; 96376; 99284; J0360; J1885; J2270; J2405; J7030; Q9967

== ENCOUNTER 2020-12-31 22:33 | Emergency (ER) | payer MEDICAID ==
[2021-01-01 03:16] LABS: Bacteria,Urine 1+ /HPF (Negative); Bilirubin,Urine NEG (Negative); Blood,Urine MOD (Negative); Color,Urine Yellow (Yellow); Mucus,Urine FEW /HPF; Protein,Urine <15 mg/dL mg/dL (Negative); Urobilinogen,Urine < 2.0 mg/dL (<2.0)
[2021-01-01 09:30] VITALS: BP 187/84
[2021-01-01] MEDS ORDERED: KETOROLAC 10 MG TAB PO ONE (09:37)
--- NOTE | 2021-01-01 10:08 | Cat Scan Report ---
CT ABDOMEN AND PELVIS WITHOUT CONTRAST HISTORY: Flank pain and dysuria COMPARISON: CT on 12/21/2019 TECHNIQUE: Routine abdominal and pelvic CT exam performed without contrast. Lack of intravenous cont rast limits evaluation of the vascular and solid organs.. All CT scans at this location are performed using CT dose reduction for ALARA by means of automated exposure control. FINDINGS: CT ABDOMEN: Lung Bases: No acute findings. Small hiatal hernia. Liver: No significant abnormality. Biliary: Gallbladder is surgically absent. Spleen: No significant abnormality. Unenlarged. Pancreas: No significant abnormality. Adrenals: No significant abnormality. Kidneys: No acute findings. Stable simple cyst in the left kidney. Lymphatics: No lymphadenopathy. Vasculature: Atherosclerotic but nonaneurysmal abdominal aorta. Bowel/Peritoneum: No significant abnormality. No free air. No free fluid. CT PELVIC: : No significant abnormality. Lymphatics: No lymphadenopathy. Osseous Structures: No aggressive appearing osseous lesions. Additional Findings: None IMPRESSION: 1. No acute findings. 2. Small hiatal hernia noted. Signer Name: Alan Decker MD Signed: 01/01/2021 10:03 AM Workstation Name: [id number]
[2021-01-01 10:24] LABS: Hematocrit 37.6 % (30.3-42.9); Hemoglobin 12.9 gm/dl (10.1-14.3); Mean Corpuscular HGB Conc 34 % (30-34); Mean Corpuscular Volume 91 fl (79-97); Platelet Count 252 K/mm3 (140-440); Red Blood Count 4.15 M/mm3 (3.65-5.03); Red Cell Distribution Width 14.1 % (13.2-15.2)
--- NOTE | 2021-01-01 10:43 | Emergency Department Report ---
Blank Doc - Documentation Documentation: 50-year-old female that presents with flank pain with dysuria and vaginal disc ahrge. Stated seen some blood in urine. HX of kidney stone. 1- This is a initial triage assessment/medical screening only. Full assessment and work-up will be completed once the patient is in proper hospital gown, ED bed and in a private room setting. This initial assessment/diagnostic orders/clinical plan/ treatment(s) is/are subject to change based on pt's health status, clinical progression and re-assessment by fellow clinical providers in the ED. Further treatment and workup at subsequent clinical providers discretion. Patient/guardians urged not to elope from ED as their condition may be serious if not clinically assessed and managed. 2-labs 3-CT w/o con r/o kidney stone
[2021-01-01 10:44] LABS: Alanine Aminotransferase 41 units/L (7-56); Albumin 4.9 g/dL (3.9-5); BUN/Creatinine Ratio 11; Blood Urea Nitrogen 11 mg/dL (7-17); Calcium 10.1 mg/dL (8.4-10.2); Hemolysis Index 13
--- NOTE | 2021-01-01 11:17 | Emergency Department Report ---
ED Female HPI - General Chief complaint: Urogenital-Female Stated complaint: PAINFUL URINATION Time Seen by Provider: 01/01/21 09:36 Source: patient Mode of arrival: Ambulatory Limitations: No Limitations - History of Present Illness Initial comments: Chief complaint: I have a UTI. I have vaginal irritation. HPI: This 50-year-old female with history of hypertension, thyroid disease, kidney stone who presents with dysuria and vaginal irritation. She is concerned for yeast infection. She has thick white discharge. Patient has mild dysuria with frequent urination and hematuria. Her new PCP DC'd her blood pressure medication. She is concerned about elevated blood pressure reading in triage. MD Complaint: vaginal discharge, dysuria -: Gradual, days(s) (Several days) Severity: mild Consistency: constant Improves with: none Worsens with: urination Are you Now?: No - Related Data Previous Rx's Medication Instructions Recorded Last Taken Type Levothyroxine [Synthroid] 125 mcg PO QAM #60 tablet 01/11/17 Unknown Rx Ibuprofen [Motrin] 800 mg PO Q8HR PRN #30 tablet 12/11/19 Unknown Rx Ondansetron [Zofran Odt] 4 mg PO Q8HR PRN #12 tab.rapdis 12/21/19 Unknown Rx Fluconazole [Diflucan TAB] 200 mg PO ONCE #1 tablet 01/01/21 Unknown Rx Ibuprofen [Motrin 800 MG tab] 800 mg PO Q8HR PRN #30 tablet 01/01/21 Unknown Rx Miconazole/Cleanser 17 On Wipe 1 each VG DAILY #1 kit 01/01/21 Unknown Rx [Monistat 7 Combination Pack] Valsartan 80 mg PO DAILY #30 tablet 01/01/21 Unknown Rx metroNIDAZOLE [Flagyl TAB] 500 mg PO Q12HR 7 Days #14 tab 01/01/21 Unknown Rx Allergies Allergy/AdvReac Type Severity Reaction Status Date / Time cefoxitin sodium Allergy Rash Verified 12/21/19 16:23 [From Mefoxin] oxycodone HCl [From Percocet] Allergy Rash Verified 12/21/19 16:23 ED Review of Systems ROS: Stated complaint: PAINFUL URINATION Other details as noted in HPI Comment: All other systems reviewed and negative Constitutional: denies: fever Respiratory: denies: cough, shortness of breath Gastrointestinal: denies: abdominal pain Genitourinary: dysuria, hematuria Musculoskeletal: as per HPI. denies: back pain ED Past Medical Hx - Past Medical History Previous Medical History?: Yes Hx Hypertension: Yes Hx CVA: No Hx Heart Attack/AMI: No Hx Congestive Heart Failure: No Hx Diabetes: No Hx Deep Vein Thrombosis: No Hx Pulmonary Embolism: No Hx GERD: No Hx Liver Disease: No Hx Renal Disease: No Hx Sickle Cell Disease: No Hx Arthritis: No Hx Headaches / Migraines: No Hx Seizures: No Hx Kidney Stones: Yes Hx Psychiatric Treatment: No Hx Asthma: No Hx COPD: No Hx Tuberculosis: No Hx Dementia: No Hx HIV: No Additional medical history: hypothyroidism, Anemia - Surgical History Past Surgical History?: Yes Hx Cholecystectomy: Yes Additional Surgical History: hysterectomy 2014, thyroidectomy - Social History Smoking Status: Never Smoker - Medications Home Medications: Home Medications Medication Instructions Recorded Confirmed Last Taken Type Levothyroxine [Synthroid] 125 mcg PO QAM #60 tablet 01/11/17 Unknown Rx Ibuprofen [Motrin] 800 mg PO Q8HR PRN #30 tablet 12/11/19 Unknown Rx Ondansetron [Zofran Odt] 4 mg PO Q8HR PRN #12 tab.rapdis 12/21/19 Unknown Rx Fluconazole [Diflucan TAB] 200 mg PO ONCE #1 tablet 01/01/21 Unknown Rx Ibuprofen [Motrin 800 MG tab] 800 mg PO Q8HR PRN #30 tablet 01/01/21 Unknown Rx Miconazole/Cleanser 17 On Wipe 1 each VG DAILY #1 kit 01/01/21 Unknown Rx [Monistat 7 Combination Pack] Valsartan 80 mg PO DAILY #30 tablet 01/01/21 Unknown Rx metroNIDAZOLE [Flagyl TAB] 500 mg PO Q12HR 7 Days #14 tab 01/01/21 Unknown Rx ED Physical Exam - General Limitations: No Limitations General appearance: alert, in no apparent distress, other (Appears comfortable appears nontoxic no acute distress) - Head Head exam: Present: atraumatic, normocephalic - Eye Eye exam: Present: normal appearance - ENT ENT exam: Present: mucous membranes moist - Neck Neck exam: Present: normal inspection, full ROM - Respiratory Respiratory exam: Present: normal lung sounds bilaterally. Absent: respiratory distress, wheezes, rales - Cardiovascular Cardiovascular Exam: Present: regular rate, normal rhythm, normal heart sounds. Absent: systolic murmur, diastolic murmur, rubs, gallop - GI/Abdominal GI/Abdominal exam: Present: soft, normal bowel sounds. Absent: distended, tenderness, guarding, rebound - Extremities Exam Extremities exam: Present: normal inspection - Neurological Exam Neurological exam: Present: alert, oriented X3 - Psychiatric Psychiatric exam: Present: normal affect, normal mood - Skin Skin exam: Present: warm, dry, intact, normal color. Absent: rash ED Course Vital Signs 01/01/21 01/01/21 01/01/21 01:48 07:53 09:29 Temperature 97.9 F 98.4 F 98.8 F Pulse Rate 62 60 65 Respiratory 20 18 16 Rate Blood Pressure 177/89 180/82 Blood Pressure 187/84 [Right] O2 Sat by Pulse 98 96 100 Oximetry ED Medical Decision Making - Lab Data Result diagrams: 01/01/21 10:10 01/01/21 10:10 Laboratory Results - last 24 hr 01/01/21 01/01/21 01/01/21 10:10 10:10 Unknown WBC 4.5 RBC 4.15 Hgb 12.9 Hct 37.6 MCV 91 MCH 31 MCHC 34 RDW 14.1 Plt Count 252 Sodium 142 Potassium 4.0 Chloride 102.0 Carbon Dioxide 28 Anion Gap 16 BUN 11 Creatinine 1.0 Estimated GFR > 60 BUN/Creatinine Ratio 11 Glucose 77 Calcium 10.1 Total Bilirubin 0.50 AST 23 ALT 41 Alkaline Phosphatase 66 Total Protein 7.1 Albumin 4.9 Albumin/Globulin Ratio 2.2 Urine Color Yellow Urine Turbidity Clear Urine pH 6.0 Ur Specific [place] 1.009 Urine Protein <15 mg/dl Urine Glucose (UA) Neg Urine Ketones Neg Urine Blood Mod Urine Nitrite Neg Urine Bilirubin Neg Urine Urobilinogen < 2.0 Ur Leukocyte Esterase Neg Urine WBC (Auto) 2.0 Urine RBC (Auto) 3.0 U Epithel Cells (Auto) 2.0 Urine Bacteria (Auto) 1+ Urine Mucus Few - Medical Decision Making 1. Vaginitis: Prescribed fluconazole Monistat metronidazole urinalysis negative for infection or significant hematuria to indicate kidney stone 2. Hypertensive urgency: Patient prescribed valsartan CBC chemistry within normal limits Critical care attestation.: If time is entered above; I have spent that time in minutes in the direct care of this critically ill patient, excluding procedure time. ED Disposition Clinical Impression: Vaginitis, Hypertension Disposition: HOME / SELF CARE / HOMELESS Is pt being admited?: No Does the pt Need Aspirin: No Condition: Stable Instructions: Vaginitis, [id number], Hypertension, Adult, [id number], Hypertension (ED) Prescriptions: Fluconazole [Diflucan TAB] 200 mg PO ONCE #1 tablet metroNIDAZOLE [Flagyl TAB] 500 mg PO Q12HR 7 Days #14 tab Miconazole/Cleanser 17 On Wipe [Monistat 7 Combination Pack] 1 each VG DAILY #1 kit Ibuprofen [Motrin 800 MG tab] 800 mg PO Q8HR PRN #30 tablet PRN Reason: Pain , Severe (7-10) Valsartan 80 mg PO DAILY #30 tablet Referrals: JAYME RODRÍGUEZ MD [Staff Physician] - 3-5 Days MALENA FRENCH JR, MD [Primary Care Provider] - 3-5 Days Forms: Work/School Release Form(ED)
[2021-01-01 12:31] LABS: HCG Qualitative,Urine Negative (Negative)
[2021-01-01 14:32] LABS: Total Cells Counted 100
[2021-01-01 14:33] LABS: Platelet Estimate Consistent w Auto; RBC Morphology Normal
== END 2021-01-01 11:19 | disposition home or self-care (01) ==
LOC: ED 22:33
DX: N76.0 Acute vaginitis (principal); I10 Essential (primary) hypertension; Z88.1 Allergy status to other antibiotic agents; Z88.5 Allergy status to narcotic agent
CPT/HCPCS: 36415; 74176; 80053; 81001; 81025; 85007; 85025; 99284

== ENCOUNTER 2021-01-05 16:03 | Outpatient (CLI) | payer MEDICAID ==
[2021-01-05 17:03] LABS: Chol/HDL Ratio 2.06 %
[2021-01-10 12:28] LABS: Vitamin D, 25-OH, D2 4 ng/mL
== END 2021-01-05 16:04 | disposition home or self-care (01) ==
LOC: LAB 16:03
PROVIDERS: ATTEND Internal Medicine
DX: Z00.00 Encounter for general adult medical examination without abnormal findings (principal); Z13.1 Encounter for screening for diabetes mellitus; E03.9 Hypothyroidism, unspecified; E55.9 Vitamin D deficiency, unspecified
CPT/HCPCS: 36415; 80061; 82306; 83036; 84443

== ENCOUNTER 2021-01-09 07:31 | Outpatient (CLI) | payer MEDICAID ==
--- NOTE | 2021-01-09 09:57 | Mammography Report ---
DIGITAL SCREENING MAMMOGRAM WITH CAD, 01/09/2021 CLINICAL INFORMATION / INDICATION: Routine screening TECHNIQUE: Digital bilateral 2D mammography was obtained in the craniocaudal and mediolateral obliqu e projections. This examination was interpreted with the benefit of Computer-Aided Detection analysis . COMPARISON: None available FINDINGS: Breast Density: The breasts are heterogeneously dense, which may obscure small masses. No dominant mass, suspicious calcifications, or architectural distortion in either breast. IMPRESSION: No mammographic evidence of malignancy. Follow up recommendation: Routine yearly BI-RADS Category 1: Negative. A "normal" or negative report should not discourage follow up or biopsy of a clinically significant f inding. A written summary of these findings will be mailed to the patient. The patient will be entered into a mammography reporting system which will generate a reminder letter for the patient's next appointmen t at the appropriate interval. The [employer] recommends yearly mammograms starting at age 40 and continuing as l estelle as a woman is in good health. Breast MRI is recommended for women with an approximate 20-25% or greater lifetime risk of breast cancer, including women with a strong family history of breast or ova micah cancer or who have been treated for Hodgkin's disease. Signer Name: Francisco Iqbal MD Signed: 01/09/2021 9:52 AM Workstation Name: [email or web address]
== END 2021-01-09 07:32 | disposition home or self-care (01) ==
LOC: MAMMO 07:31
PROVIDERS: ATTEND Internal Medicine
DX: Z12.31 Encounter for screening mammogram for malignant neoplasm of breast (principal)
CPT/HCPCS: 77067

== ENCOUNTER 2021-03-02 22:13 | Emergency (ER) | payer MEDICAID ==
[2021-03-02 23:40] LABS: Calcium 10.7 mg/dL (8.4-10.2)
[2021-03-02 23:54] LABS: Free T4 (Free Thyroxine) 1.84 ng/dL (0.76-1.46)
--- NOTE | 2021-03-03 00:05 | Emergency Department Report ---
ED Dizziness HPI - General Chief Complaint: Dizziness Stated Complaint: SOB Time Seen by Provider: 03/02/21 22:33 Source: patient, old records reviewed Mode of arrival: Ambulatory Limitations: No Limitations - History of Present Illness Initial Comments: 51-year-old female with a past medical history of hypertension, hypothyroidism currently on Synthroid, and anemia presents to the hospital complaining of right hand numbness and discoloration for the past several days and intermittent lightheadedness and feeling like she is going to pass out since 5 PM today. Patient's right hand has been white and ashy appearing in color. Positive associated paresthesias of the right hand. No injury, trauma, or weakness reported. 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 She was at work and had episode of feeling like she was going to pass out with associated blurred vision and shortness of sob. Symptoms improved with sitting down. Patient has continued to have intermittent episodes throughout the evening. Patient is currently on Valsartan/HCTZ [id number] for the past 2 months which is started by her previous PMD associated with [facility] for new diagnosis of hypertension. Patient currently is a patient of Dr. Lomas. She currently only complains of right hand numbness and paresthesias and denies headache, chest pain, shortness of breath, abdominal pain, nausea, vomiting, or fever. - Related Data Previous Rx's Medication Instructions Recorded Last Taken Type Levothyroxine [Synthroid] 125 mcg PO QAM #60 tablet 01/11/17 Unknown Rx Ibuprofen [Motrin] 800 mg PO Q8HR PRN #30 tablet 12/11/19 Unknown Rx Ondansetron [Zofran Odt] 4 mg PO Q8HR PRN #12 tab.rapdis 12/21/19 Unknown Rx Fluconazole [Diflucan TAB] 200 mg PO ONCE #1 tablet 01/01/21 Unknown Rx Ibuprofen [Motrin 800 MG tab] 800 mg PO Q8HR PRN #30 tablet 01/01/21 Unknown Rx Miconazole/Cleanser 17 On Wipe 1 each VG DAILY #1 kit 01/01/21 Unknown Rx [Monistat 7 Combination Pack] Valsartan 80 mg PO DAILY #30 tablet 01/01/21 Unknown Rx metroNIDAZOLE [Flagyl TAB] 500 mg PO Q12HR 7 Days #14 tab 01/01/21 Unknown Rx NIFEdipine [Nifedipine ER] 30 mg PO DAILY #30 tab.er.24 03/03/21 Unknown Rx Allergies Allergy/AdvReac Type Severity Reaction Status Date / Time cefoxitin sodium Allergy Rash Verified 12/21/19 16:23 [From Mefoxin] oxycodone HCl [From Percocet] Allergy Rash Verified 12/21/19 16:23 ED Review of Systems ROS: Stated complaint: SOB Other details as noted in HPI Comment: All other systems reviewed and negative ED Past Medical Hx - Past Medical History Hx Hypertension: Yes Hx CVA: No Hx Heart Attack/AMI: No Hx Congestive Heart Failure: No Hx Diabetes: No Hx Deep Vein Thrombosis: No Hx Pulmonary Embolism: No Hx GERD: No Hx Liver Disease: No Hx Renal Disease: No Hx Sickle Cell Disease: No Hx Arthritis: No Hx Headaches / Migraines: No Hx Seizures: No Hx Kidney Stones: Yes Hx Psychiatric Treatment: No Hx Asthma: No Hx COPD: No Hx Tuberculosis: No Hx Dementia: No Hx HIV: No Additional medical history: hypothyroidism, Anemia - Surgical History Hx Cholecystectomy: Yes Additional Surgical History: Cholecystectomy, hysterectomy 2014, thyroidectomy - Social History Smoking Status: Current Every Day Smoker Substance Use Type: Alcohol - Medications Home Medications: Home Medications Medication Instructions Recorded Confirmed Last Taken Type Levothyroxine [Synthroid] 125 mcg PO QAM #60 tablet 01/11/17 Unknown Rx Ibuprofen [Motrin] 800 mg PO Q8HR PRN #30 tablet 12/11/19 Unknown Rx Ondansetron [Zofran Odt] 4 mg PO Q8HR PRN #12 tab.rapdis 12/21/19 Unknown Rx Fluconazole [Diflucan TAB] 200 mg PO ONCE #1 tablet 01/01/21 Unknown Rx Ibuprofen [Motrin 800 MG tab] 800 mg PO Q8HR PRN #30 tablet 01/01/21 Unknown Rx Miconazole/Cleanser 17 On Wipe 1 each VG DAILY #1 kit 01/01/21 Unknown Rx [Monistat 7 Combination Pack] Valsartan 80 mg PO DAILY #30 tablet 01/01/21 Unknown Rx metroNIDAZOLE [Flagyl TAB] 500 mg PO Q12HR 7 Days #14 tab 01/01/21 Unknown Rx NIFEdipine [Nifedipine ER] 30 mg PO DAILY #30 tab.er.24 03/03/21 Unknown Rx ED Physical Exam - General Limitations: No Limitations - Other Other exam information: General: No acute distress Head: Atraumatic Eyes: normal appearance ENT: Moist mucous membranes Neck: Normal appearance, no midline tenderness Chest: Clear to auscultation bilaterally CV: Regular rate and rhythm Abdomen: Soft, normal bowel sounds, nontender, nondistended, no rebound or guarding Back: Normal inspection Extremity: Grayish-white discoloration to right fingers that worsens with exposure to cold water. Poor cap refill. Decreased sensation to light touch. Left hand pink in color with good cap refill. 2+ DP pulses bilaterally Neuro: Alert O x 3, no facial asymmetry, speech clear, no gross motor sensory deficit Psych: Appropriate behavior Skin: No rash ED Course Vital Signs 03/02/21 03/02/21 03/02/21 22:17 23:50 23:51 Temperature 97.7 F Pulse Rate 100 H 76 74 Pulse Rate [ Lying] Pulse Rate [ Sitting] Pulse Rate [ Standing] Respiratory 18 Rate Blood Pressure 98/63 108/64 Blood Pressure [Lying] Blood Pressure [Right] Blood Pressure [Sitting] Blood Pressure [Standing] O2 Sat by Pulse 100 99 100 Oximetry 03/02/21 03/03/21 03/03/21 23:53 00:00 00:43 Temperature 97.9 F Pulse Rate 100 H 78 Pulse Rate [ 76 Lying] Pulse Rate [ 74 Sitting] Pulse Rate [ 100 H Standing] Respiratory 18 Rate Blood Pressure Blood Pressure 108/64 [Lying] Blood Pressure 110/56 [Right] Blood Pressure 106/89 [Sitting] Blood Pressure 108/89 [Standing] O2 Sat by Pulse 100 100 Oximetry - Consultations Consultation #1: 03/03/21 01:[address] Meza on-call nephrology regarding patient's worsening renal function in the past 2 months. Recommends to hold valsartan/HCTZ. Monitor blood pressure. If blood pressure greater than 140/80 may start alter huslia medication. ED Medical Decision Making - Lab Data Result diagrams: 03/02/21 23:01 03/02/21 23:01 Lab Results 03/02/21 03/02/21 03/02/21 Range/Units 23:01 23:01 23:01 WBC 6.9 (4.5-11.0) K/mm3 RBC 4.47 (3.65-5.03) M/mm3 Hgb 14.0 (10.1-14.3) gm/dl Hct 41.2 (30.3-42.9) % MCV 92 (79-97) fl MCH 31 (28-32) pg MCHC 34 (30-34) % RDW 12.6 L (13.2-15.2) % Plt Count 265 (140-440) K/mm3 Lymph % (Auto) 45.6 H (13.4-35.0) % [place] % (Auto) 12.7 H (0.0-7.3) % Eos % (Auto) 1.9 (0.0-4.3) % Baso % (Auto) 0.7 (0.0-1.8) % Lymph # (Auto) 3.1 (1.2-5.4) K/mm3 [place] # (Auto) 0.9 H (0.0-0.8) K/mm3 Eos # (Auto) 0.1 (0.0-0.4) K/mm3 Baso # (Auto) 0.1 (0.0-0.1) K/mm3 Seg Neutrophils % 39.1 L (40.0-70.0) % Seg Neutrophils # 2.7 (1.8-7.7) K/mm3 Sodium 139 (137-145) mmol/L Potassium 3.8 (3.6-5.0) mmol/L Chloride 98.9 (98-107) mmol/L Carbon Dioxide 27 (22-30) mmol/L Anion Gap 17 mmol/L BUN 22 H (7-17) mg/dL Creatinine 2.4 H (0.6-1.2) mg/dL Estimated GFR 26 ml/min BUN/Creatinine Ratio 9 % Glucose 110 H (65-100) mg/dL Calcium 10.7 H (8.4-10.2) mg/dL Magnesium 2.00 (1.7-2.3) mg/dL Total Bilirubin 0.30 (0.1-1.2) mg/dL AST 26 (5-40) units/L ALT 20 (7-56) units/L Alkaline Phosphatase 61 (35-129) units/L Total Creatine Kinase (30-135) units/L Troponin T (0.00-0.029) ng/mL Total Protein 8.2 (6.3-8.2) g/dL Albumin 5.0 (3.9-5) g/dL Albumin/Globulin Ratio 1.6 % TSH 0.052 L (0.270-4.200) mlU/mL Free T4 1.84 H (0.76-1.46) ng/dL HCG, Qual (Negative) 03/02/21 03/02/21 03/03/21 Range/Units 23:01 23:01 00:03 WBC (4.5-11.0) K/mm3 RBC (3.65-5.03) M/mm3 Hgb (10.1-14.3) gm/dl Hct (30.3-42.9) % MCV (79-97) fl MCH (28-32) pg MCHC (30-34) % RDW (13.2-15.2) % Plt Count (140-440) K/mm3 Lymph % (Auto) (13.4-35.0) % [place] % (Auto) (0.0-7.3) % Eos % (Auto) (0.0-4.3) % Baso % (Auto) (0.0-1.8) % Lymph # (Auto) (1.2-5.4) K/mm3 [place] # (Auto) (0.0-0.8) K/mm3 Eos # (Auto) (0.0-0.4) K/mm3 Baso # (Auto) (0.0-0.1) K/mm3 Seg Neutrophils % (40.0-70.0) % Seg Neutrophils # (1.8-7.7) K/mm3 Sodium (137-145) mmol/L Potassium (3.6-5.0) mmol/L Chloride (98-107) mmol/L Carbon Dioxide (22-30) mmol/L Anion Gap mmol/L BUN (7-17) mg/dL Creatinine (0.6-1.2) mg/dL Estimated GFR ml/min BUN/Creatinine Ratio % Glucose (65-100) mg/dL Calcium (8.4-10.2) mg/dL Magnesium (1.7-2.3) mg/dL Total Bilirubin (0.1-1.2) mg/dL AST (5-40) units/L ALT (7-56) units/L Alkaline Phosphatase (35-129) units/L Total Creatine Kinase 112 (30-135) units/L Troponin T < 0.010 (0.00-0.029) ng/mL Total Protein (6.3-8.2) g/dL Albumin (3.9-5) g/dL Albumin/Globulin Ratio % TSH (0.270-4.200) mlU/mL Free T4 (0.76-1.46) ng/dL HCG, Qual Negative (Negative) - EKG Data -: EKG Interpreted by Me (lvh) EKG shows normal: sinus rhythm, intervals (qtc 413), QRS complexes (qrsd 67), ST-T waves (diffuse t wave inv, lvh) Rate: normal (98) - EKG Data When compared to previous EKG there are: previous EKG unavailable - Medical Decision Making 51-year-old female presents to the hospital complaining of intermittent right hand numbness with discoloration and intermittent episodes of lightheadedness and near syncope today. Patient does not have any persistent blurry vision and I suspect the symptoms occurred when she was having her near syncopal episodes while standing. Orthostatic vital signs indicate dehydration and possibly overdiuresis and overmedication from current blood pressure medication/diuretic. Patient treated with IV normal saline given orthostatic tachycardia. Patient has worsening renal function compared to 2 months prior. This was discussed with the gas turbine mechanic who recommended to hold current blood pressure medication. Patient will be asked to monitor her blood pressure. Patient states she does have a BP cuff at home. If greater than 140/80 she will be encouraged to start nifedipine 30 mg ER daily to help with blood pressure management as well as Raynaud's phenomenon. Outpatient work-up for Raynaud's advised as well as follow-up with gas turbine mechanic for renal function monitoring Critical Care Time: No Critical care attestation.: If time is entered above; I have spent that time in minutes in the direct care of this critically ill patient, excluding procedure time. ED Disposition Clinical Impression: Lightheadedness, Dehydration, Acute renal insufficiency, Raynaud phenomenon, History of chronic hypertension Disposition: 01 HOME / SELF CARE / HOMELESS Is pt being admited?: No Does the pt Need Aspirin: No Condition: Stable Instructions: Acute Kidney Injury, Adult, Raynaud Phenomenon, Dehydration, Adult, Qahn-iw-Pday, Dizziness, Dehydration, Adult Additional Instructions: Take the medication as prescribed. Follow-up with your doctor or doctor/clinic provided. Return if symptoms worsen as indicated by your discharge instructions. Discontinue your current blood pressure medication valsartan/HCTZ. You have been prescribed an alternative blood pressure medication nifedipine 30 mg extended release tablets. Continue to monitor your blood pressure. If your blood pressure is greater 140/80 start nifedipine 30 mg once a day. You May increase the dose by 30mg (2 tabs once a day) in 7 days if blood pressure r emains elevated. This medication may also help with your Raynaud's phenomenon of your right hand. Please follow-up with your primary care doctor for further management and testing. Follow-up with the gas turbine mechanic provided for further monitoring of your kidney function. Take the lab work provided to your doctor for follow-up Prescriptions: NIFEdipine [Nifedipine ER] 30 mg PO DAILY #30 tab.er.24 Referrals: JAYME RODRÍGUEZ MD [Staff Physician] - 3-5 Days KEO DIEGO MD [Staff Physician] - 3-5 Days (Kidney doctor)
[2021-03-03] MEDS ORDERED: SODIUM CHLORIDE 0.9% 1000 ML 1,000 ML IV ONE (00:06)
[2021-03-03 00:27] LABS: Basophils # (Auto) 0.1 K/mm3 (0.0-0.1); Basophils % (Auto) 0.7 % (0.0-1.8); Eosinophils # (Auto) 0.1 K/mm3 (0.0-0.4); Eosinophils % (Auto) 1.9 % (0.0-4.3); Hematocrit 41.2 % (30.3-42.9); Lymphocytes # (Auto) 3.1 K/mm3 (1.2-5.4); Lymphocytes % (Auto) 45.6 % (13.4-35.0); Mean Corpuscular HGB Conc 34 % (30-34); Mean Corpuscular Volume 92 fl (79-97); Monocytes # (Auto) 0.9 K/mm3 (0.0-0.8); Monocytes % (Auto) 12.7 % (0.0-7.3); Platelet Count 265 K/mm3 (140-440); Red Blood Count 4.47 M/mm3 (3.65-5.03); Red Cell Distribution Width 12.6 % (13.2-15.2)
--- NOTE | 2021-03-03 00:43 | XRay Report ---
CHEST 2 VIEWS INDICATION / CLINICAL INFORMATION: near syncope, dizziness. COMPARISON: 04/15/2019 FINDINGS: SUPPORT DEVICES: None. HEART / MEDIASTINUM: No significant abnormality. LUNGS / PLEURA: No significant pulmonary or pleural abnormality. No pneumothorax. ADDITIONAL FINDINGS: No significant additional findings. IMPRESSION: 1. No acute findings. Signer Name: Jose E Devine DO Signed: 03/03/2021 12:38 AM Workstation Name: [id number]
[2021-03-03 00:54] VITALS: BP 110/56
--- NOTE | 2021-03-03 11:04 | Electrocardiograph Report ---
[facility] Test Date: 2021-03-02 Test Time: 22:32:22 Pat Name: DAVID BATES Department: Room: Gender: F Internal Communications Intern: [id number] : 1970 Requested By: MICHELLE REDD Order Number: [id number] Reading MD: Ronal Escoto Measurements Intervals [place] Rate: 98 P: 79 [place]: 137 QRS: 80 QRSD: 67 T: 265 QT: 323 QTc: 413 Interpretive Statements Sinus rhythm Biatrial enlargement Probable left ventricular hypertrophy Nonspecific T abnormalities, diffuse leads No previous ECG available for comparison Electronically Signed On 03-03-2021 11:03:49 EDT by Ronal Escoto
== END 2021-03-03 02:35 | disposition home or self-care (01) ==
LOC: ED 22:13
DX: E86.0 Dehydration (principal); R42 Dizziness and giddiness; N28.9 Disorder of kidney and ureter, unspecified; I73.00 Raynaud's syndrome without gangrene; I10 Essential (primary) hypertension; E03.9 Hypothyroidism, unspecified; D64.9 Anemia, unspecified; Z87.442 Personal history of urinary calculi; Z90.710 Acquired absence of both cervix and uterus; Z98.890 Other specified postprocedural states; Z88.5 Allergy status to narcotic agent; Z88.6 Allergy status to analgesic agent
CPT/HCPCS: 36415; 71046; 80048; 80053; 81001; 82550; 83735; 84439; 84443; 84484; 84703; 85025; 85652; 86038; 86140; 86431; 93005; 96360; 99284; J7030

== ENCOUNTER 2021-11-25 14:25 | Emergency (ER) | payer MEDICAID ==
--- NOTE | 2021-11-25 17:54 | XRay Report ---
CHEST 2 VIEWS INDICATION / CLINICAL INFORMATION: sob. COMPARISON: February 2021 FINDINGS: SUPPORT DEVICES: None. HEART / MEDIASTINUM: No significant abnormality. LUNGS / PLEURA: No significant pulmonary or pleural abnormality. No pneumothorax. ADDITIONAL FINDINGS: No significant additional findings. IMPRESSION: 1. No acute findings. Signer Name: Gildardo Jama MD Signed: 11/25/2021 5:47 PM Workstation Name: [id number]
[2021-11-25 18:07] LABS: INR 0.89 (0.87-1.13)
[2021-11-25 18:08] LABS: Partial Thromboplastin Time 31.1 Sec. (24.2-36.6)
[2021-11-25 18:27] LABS: Free T4 (Free Thyroxine) 1.21 ng/dL (0.76-1.46)
[2021-11-25 19:45] LABS: Albumin 5.1 g/dL (3.9-5); Calcium 10.8 mg/dL (8.4-10.2)
[2021-11-25 20:02] LABS: Chol/HDL Ratio 4.84 %
--- NOTE | 2021-11-26 06:16 | Emergency Department Report ---
ED General Adult HPI - General Chief complaint: Dyspnea/Respdistress Stated complaint: CHEST PAIN,HANDS AND FEET TINGLE Time Seen by Provider: 11/26/21 03:09 Source: patient Mode of arrival: Ambulatory Limitations: No Limitations - History of Present Illness Initial comments: 51-year-old male female past medical history of hypertension and hypothyroidism presents emergency department complaining of having chest discomfort around 8 AM this morning which has since subsided. At the time she had vague shortness of breath associated with chest discomfort and also describes what sounds like palpitations. The chest pain was tender to the touch and with range of motion. She reports no hemoptysis hematemesis hematochezia, no fever, chills, sweats. No nausea, no vomiting, no diarrhea, no traumatic events. She reports no lower extremity swelling. Severity scale (0 -10): 0 (Note chest pain current symptoms have subsided) Consistency: constant Improves with: none Worsens with: none Associated Symptoms: denies other symptoms. denies: cough, diaphoresis, loss of appetite, malaise, nausea/vomiting, seizure, syncope, weakness - Related Data Previous Rx's Medication Instructions Recorded Last Taken Type Levothyroxine [Synthroid] 125 mcg PO QAM #60 tablet 01/11/17 Unknown Rx Ibuprofen [Motrin] 800 mg PO Q8HR PRN #30 tablet 12/11/19 Unknown Rx Ondansetron [Zofran Odt] 4 mg PO Q8HR PRN #12 tab.rapdis 12/21/19 Unknown Rx Fluconazole [Diflucan TAB] 200 mg PO ONCE #1 tablet 01/01/21 Unknown Rx Ibuprofen [Motrin 800 MG tab] 800 mg PO Q8HR PRN #30 tablet 01/01/21 Unknown Rx Miconazole/Cleanser 17 On Wipe 1 each VG DAILY #1 kit 01/01/21 Unknown Rx [Monistat 7 Combination Pack] Valsartan 80 mg PO DAILY #30 tablet 01/01/21 Unknown Rx metroNIDAZOLE [Flagyl TAB] 500 mg PO Q12HR 7 Days #14 tab 01/01/21 Unknown Rx NIFEdipine [Nifedipine ER] 30 mg PO DAILY #30 tab.er.24 03/03/21 Unknown Rx Allergies Allergy/AdvReac Type Severity Reaction Status Date / Time cefoxitin sodium Allergy Rash Verified 12/21/19 16:23 [From Mefoxin] oxycodone HCl [From Percocet] Allergy Rash Verified 12/21/19 16:23 ED Review of Systems ROS: Stated complaint: CHEST PAIN,HANDS AND FEET TINGLE Other details as noted in HPI Comment: All other systems reviewed and negative ED Past Medical Hx - Past Medical History Hx Hypertension: Yes Hx CVA: No Hx Heart Attack/AMI: No Hx Congestive Heart Failure: No Hx Diabetes: No Hx Deep Vein Thrombosis: No Hx Pulmonary Embolism: No Hx GERD: No Hx Liver Disease: No Hx Renal Disease: No Hx Sickle Cell Disease: No Hx Arthritis: No Hx Headaches / Migraines: No Hx Seizures: No Hx Kidney Stones: Yes Hx Psychiatric Treatment: No Hx Asthma: No Hx COPD: No Hx Tuberculosis: No Hx Dementia: No Hx HIV: No Additional medical history: hypothyroidism, Anemia - Surgical History Hx Cholecystectomy: Yes Additional Surgical History: Cholecystectomy, hysterectomy 2014, thyroidectomy - Social History Smoking Status: Current Every Day Smoker Substance Use Type: Alcohol - Medications Home Medications: Home Medications Medication Instructions Recorded Confirmed Last Taken Type Levothyroxine [Synthroid] 125 mcg PO QAM #60 tablet 01/11/17 Unknown Rx Ibuprofen [Motrin] 800 mg PO Q8HR PRN #30 tablet 12/11/19 Unknown Rx Ondansetron [Zofran Odt] 4 mg PO Q8HR PRN #12 tab.rapdis 12/21/19 Unknown Rx Fluconazole [Diflucan TAB] 200 mg PO ONCE #1 tablet 01/01/21 Unknown Rx Ibuprofen [Motrin 800 MG tab] 800 mg PO Q8HR PRN #30 tablet 01/01/21 Unknown Rx Miconazole/Cleanser 17 On Wipe 1 each VG DAILY #1 kit 01/01/21 Unknown Rx [Monistat 7 Combination Pack] Valsartan 80 mg PO DAILY #30 tablet 01/01/21 Unknown Rx metroNIDAZOLE [Flagyl TAB] 500 mg PO Q12HR 7 Days #14 tab 01/01/21 Unknown Rx NIFEdipine [Nifedipine ER] 30 mg PO DAILY #30 tab.er.24 03/03/21 Unknown Rx ED Physical Exam - General Limitations: No Limitations General appearance: alert, in no apparent distress - Head Head exam: Present: atraumatic, normocephalic - Eye Eye exam: Present: normal appearance, PERRL, EOMI - ENT ENT exam: Present: normal exam, normal orophraynx, mucous membranes moist - Neck Neck exam: Present: normal inspection - Respiratory Respiratory exam: Present: normal lung sounds bilaterally. Absent: respiratory distress, wheezes, rales, chest wall tenderness, decreased breath sounds - Cardiovascular Cardiovascular Exam: Present: regular rate, normal rhythm. Absent: systolic murmur, diastolic murmur, rubs, gallop - GI/Abdominal GI/Abdominal exam: Present: soft, normal bowel sounds - Extremities Exam Extremities exam: Present: normal inspection - Back Exam Back exam: Present: normal inspection - Neurological Exam Neurological exam: Present: alert, oriented X3 - Psychiatric Psychiatric exam: Present: normal affect, normal mood - Skin Skin exam: Present: warm, dry, intact, normal color. Absent: rash ED Course Vital Signs 11/25/21 11/25/21 11/25/21 14:33 14:47 19:49 Temperature 98.5 F 98.4 F Pulse Rate 131 H 100 H 85 Respiratory 26 H 17 18 Rate Blood Pressure 136/117 121/63 126/63 [Right] O2 Sat by Pulse 100 99 99 Oximetry ED Medical Decision Making - Lab Data Result diagrams: 11/25/21 17:14 - EKG Data EKG shows normal: sinus rhythm Rate: tachycardia - EKG Data 11/26/21 06:09 Sinus tachycardia at 104. No atrial fibrillation no atrial flutter no J-point elevation no ventricular arrhythmia - Medical Decision Making Problem 1 chest pain This patient presents with chest pain that is very unlikely angina or acute coronary syndrome. The emergency department evaluation has not identified any cause for suspicion that this chest pain has a cardiac etiology. Based on their history, EKG (which showed no evidence of ischemia or infarction) and imaging, in addition to the patient's physical exam, I see no evidence at this time for a malignant etiology for the patient's chest pain. There is no acute evidence for pulmonary embolus, acute myocardial infarction, pneumothorax, Boerhaeve syndrome, cardiac tamponade, thoracic artery dissection, or any other emergent cardiac, pulmonary or aortic pathology. Given the low pre-test probability for cardiac etiology of chest pain and the absence of any sign of ischemia or infarction, discharge for outpatient follow-up and further evaluation is reasonable. I have explained to the patient that even though a cardiac problem is very unlikely, follow-up and further testing is required to reduce further the already small uncertainty that exists. Other life-threatening diagnoses have been considered. The patient understands the need to return immediately if their symptoms worsen or they develop any new symptoms, and not to engage in any significant exertional activity until follow-up is obtained. Problem 2 renal insufficiency Reports no known history of any renal insufficiency.. Her records indicate a previous appointment for currently. 100 there is no lower extremity swelling. And and and changing renal dysfunction no obstructive. Considered alternate etiologies of symptoms/findings including infectious processes, severe metabolic derangements or electrolyte abnormalities, ischemia, ACS, heart failure, intracranial/central process but think these are unlikely given the history and physical exam. Critical care attestation.: If time is entered above; I have spent that time in minutes in the direct care of this critically ill patient, excluding procedure time. ED Disposition Clinical Impression: Renal insufficiency Disposition: HOME / SELF CARE / HOMELESS Is pt being admited?: No Does the pt Need Aspirin: No Condition: Stable Instructions: Food Basics for Chronic Kidney Disease, Nonspecific Chest Pain, Adult, Preventing Chronic Kidney Disease, Chronic Kidney Disease, Adult Additional Instructions: You were evaluated emergency department today for chest pain. Your evaluation has shown no medicals conditions requiring emergent intervention at this time, however recommend that you follow-up with your primary care physician or your revenue enforcement collection agent soon as possible for further testing as an outpatient. Please schedule an appointment for follow-up with your primary care physician as soon as possible. Return to emergency department if you expands worsening uncontrolled chest pain, shortness of breath, lightheadedness, feeling faint, nausea, vomiting or any other concerning symptoms. Please be sure to follow-up with your primary care provider so they can further evaluate your renal insufficiency and be sure to hydrate well Referrals: JAYME RODRÍGUEZ MD [Staff Physician] - 3-5 Days BRIANA CAVANAUGH MD [Staff Physician] - 3-5 Days
[2021-11-26 06:41] VITALS: BP 131/68
--- NOTE | 2021-11-26 09:16 | Electrocardiograph Report ---
[facility] Test Date: 2021-11-25 Test Time: 14:46:22 Pat Name: DAVID BATES Department: Room: Gender: F [employer] Operations Engineer: [birth year] : 1970 Requested By: ZAIDA SCHUSTER Order Number: [id number] Reading MD: Heriberto Bhatti Measurements Intervals [place] Rate: 104 P: 70 AL: 127 QRS: 61 QRSD: 78 T: 45 QT: 390 QTc: 514 Interpretive Statements Sinus tachycardia Probable left atrial enlargement Probable left ventricular hypertrophy nonspecific st-tl Compared to ECG 03/02/2021 22:32:22 Sinus rhythm no longer present T-wave abnormality no longer present Electronically Signed On 11-26-2021 9:16:15 EDT by Heriberto Bhatti
== END 2021-11-26 06:43 | disposition home or self-care (01) ==
LOC: ED 14:25
DX: N28.9 Disorder of kidney and ureter, unspecified (principal); I10 Essential (primary) hypertension; Z87.442 Personal history of urinary calculi; D64.9 Anemia, unspecified; E03.9 Hypothyroidism, unspecified; Z98.890 Other specified postprocedural states; F17.290 Nicotine dependence, other tobacco product, uncomplicated; Z88.8 Allergy status to other drugs, medicaments and biological substances
CPT/HCPCS: 36415; 71046; 80053; 80061; 84439; 84443; 84484; 85610; 85730; 93005; 99284

== ENCOUNTER 2022-01-07 09:50 | Outpatient (CLI) | payer MEDICAID ==
[2022-01-07 12:02] LABS: Hematocrit 38.9 % (30.3-42.9); Hemoglobin 12.7 gm/dl (10.1-14.3); Mean Corpuscular HGB Conc 33 % (30-34); Mean Corpuscular Volume 90 fl (79-97); Platelet Count 261 K/mm3 (140-440); Red Cell Distribution Width 13.5 % (13.2-15.2)
[2022-01-07 12:08] LABS: Bacteria,Urine 1+ /HPF (Negative); Mucus,Urine 1+ /HPF
[2022-01-07 12:12] LABS: Alanine Aminotransferase 7 units/L (7-56); Albumin 5.2 g/dL (3.9-5); BUN/Creatinine Ratio 12; Blood Urea Nitrogen 13 mg/dL (7-17); Calcium 10.3 mg/dL (8.4-10.2); Chol/HDL Ratio 3.87 %; HDL Cholesterol 82 mg/dL (40-59); Hemolysis Index 4; LDL Cholesterol,Direct 209 mg/dL (50-130)
[2022-01-07 12:21] LABS: Color,Urine Straw (Yellow)
[2022-01-07 12:56] LABS: Basophils % (Manual) 0 % (0.0-1.8); Eosinophils % (Manual) 0 % (0.0-4.3); Total Cells Counted 100
[2022-01-07 12:57] LABS: Platelet Estimate Consistent w Auto; RBC Morphology Normal
== END 2022-01-07 09:51 | disposition home or self-care (01) ==
LOC: LABHHL 09:50
PROVIDERS: ATTEND Internal Medicine
DX: I10 Essential (primary) hypertension (principal); E55.9 Vitamin D deficiency, unspecified; E03.9 Hypothyroidism, unspecified; N95.2 Postmenopausal atrophic vaginitis; N39.0 Urinary tract infection, site not specified
CPT/HCPCS: 36415; 80053; 80061; 80178; 81001; 82306; 82670; 83001; 84144; 84443; 85007; 85025